=== PATIENT | female | born 1935 | race Caucasian/White ===

== ENCOUNTER 2020-02-18 19:20 | Emergency (ER) | payer MEDICARE ==
[~2020-02-18] VITALS: Ht 162 cm; Wt 63.0 kg
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
[2020-02-18 19:37] LABS: BASOPHILS % (AUTO) 0 % (0-10); EOSINOPHILS # (AUTO) 0.1 10^3/uL (0.0-0.3); EOSINOPHILS % (AUTO) 1 % (0-10); HEMATOCRIT 45 % (35-52); HEMOGLOBIN 15.5 G/DL (11.5-16.0); LYMPHOCYTES # (AUTO) 1.3 X 10^3 (1.0-4.0); LYMPHOCYTES % (AUTO) 18 % (12-44); MEAN CORPUSCULAR HEMOGLOBIN 29 PG (25-34); MEAN CORPUSCULAR HGB CONC 35 G/DL (32-36); MEAN CORPUSCULAR VOLUME 84 FL (80-99); MEAN PLATELET VOLUME 10.5 FL (7.4-10.4); MONOCYTES # (AUTO) 0.7 X 10^3 (0.0-1.0); MONOCYTES % (AUTO) 10 % (0-12); NEUTROPHILS # (AUTO) 4.9 X 10^3 (1.8-7.8); NEUTROPHILS % (AUTO) 70 % (42-75); PLATELET COUNT 167 10^3/uL (130-400)
[2020-02-18 19:51] LABS: ALBUMIN 4.1 GM/DL (3.2-4.5)
[2020-02-18 19:52] LABS: CHLORIDE 107 MMOL/L (98-107); POTASSIUM 3.5 MMOL/L (3.6-5.0); SODIUM 142 MMOL/L (135-145)
[2020-02-18 19:53] LABS: CALCIUM 9.7 MG/DL (8.5-10.1)
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
[2020-02-18 19:54] LABS: GLUCOSE 96 MG/DL (70-105); TOTAL PROTEIN 6.9 GM/DL (6.4-8.2)
[2020-02-18 19:55] LABS: CARBON DIOXIDE 21 MMOL/L (21-32)
[2020-02-18 19:56] LABS: BILIRUBIN,TOTAL 0.7 MG/DL (0.1-1.0)
[2020-02-18 19:57] LABS: ALKALINE PHOSPHATASE 48 U/L (40-136)
[2020-02-18 19:58] LABS: CREATININE SERUM 0.82 MG/DL (0.60-1.30); GFR ESTIMATED > 60
[2020-02-18 19:59] LABS: BUN/CREATININE RATIO 21
[2020-02-18 20:01] LABS: ALANINE AMINOTRANSFERASE 14 U/L (0-55)
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
[2020-02-18 21:51] VITALS: BP 166/85
--- NOTE | 2020-02-18 21:53 | NUR ---
Pt family was contacted by provider; ETA approx [phone]. Pt resting comfortably at this time.
--- OUTSIDE RECORDS SUMMARY | 2020-02-18 22:03 | XMS REPORT | Continuity of Care Document ---
Author Author [facility] Organization [facility] Address [address] [place] [address] Phone Care Team Providers Care Associate Financial Analyst Name Role Phone Sky Yin PCP Champ Pacheco Rndphys Unavailable Allergies, Adverse Reactions, Alerts Allergen Type Severity Reaction Last Updated Verified Status lovastatin Allergy Unkno wn June 25, 2019 Yes Active Medications Medication Status Dose Units Route Sig Qty Days Start Date End Date Instructions Bisoprolol/Hctz 5/6.25 Discontinued 1 TAB Oral 2 DAILY 0 October 24, 2010 9 :57am November 06, 2010 7:25pm Fenofibrate Active 145 MG Oral Daily 0 October 24, 2010 9:57am Fosinopril Sodium Discontinued 20 MG Oral Daily 0 October 24, 2010 9:57am November 06, 2010 7:25pm Irbesartan Discontinued 300 MG Oral Daily 0 October 24, 2010 9:57am November 16, 2012 6:46am Levothyroxine Sodium Discontinued 200 MCG Oral Daily 0 October 24, 2010 9:57am December 08, 2015 1:47pm Hydrochlorothiazide Discontinued 1 TAB Oral Daily 0 November 06, 2010 7:25pm November 26, 2010 1:08am Chlorthalidone Active 25 MG Oral Daily 0 November 16, 2012 6:46am Clopidogrel Bisulfate Active 75 MG Oral Daily 0 June 06, 2014 1:25am Pyridoxine Hcl (Vitamin B6) Active 50 MG Oral Daily 0 June 07, 2014 6:59pm Carvedilol Active 12.5 MG Oral Twice Daily with Meals 0 December 08, 2015 4:1 7pm Alendronate Active 70 MG Oral Q7D June 25, 2019 4:30pm Aspirin Active 81 MG Oral Daily June 25, 2019 4:30pm Calcium Carbonate/Vitamin D3 Active 2 TAB Oral Daily June 25, 2019 4:30pm Colesevelam Active 1875 MG Oral Twice a Day June 25, 2019 4:30pm Cyanocobalamin (Vitamin B-12) Active 1000 MCG Oral Daily June 25, 2019 4: 30pm Ezetimibe Active 10 MG Oral Daily June 25, 2019 4:30pm Fish Oil/Dha/Epa Active 1 CAP Oral Daily June 25, 2019 4:30pm Folic Acid Active 1 MG Oral Daily June 25, 2019 4:30pm Levothyroxine Sodium Active 175 MCG Oral Daily June 25, 2019 4:30pm Metformin Active 500 MG Oral Twice Daily with Meals June 25, 2019 4:30pm Mometasone Furoate Active 1 APPLICATIO Topical Prn June 25, 2019 4:30pm Rosuvastatin Active 20 MG Oral Bedtime June 25, 2019 4:30pm Valsartan Active 160 MG Oral Daily June 25, 2019 4:30pm Problems Active Problems Medical Problem Onset Date Status Pancreatitis Active Inactive/Resolved Problems Medical Problem Onset Date Status Hematoma Resolved Procedures Procedure Date Performed Status CT abdomen pelvis w con August 23 active Relevant Diagnostic Tests and/or Laboratory Data Laboratory Results Test Date/Time Result Interpretation Reference Range Result Comment Performing Site White Blood Count August 23 10:02pm 8.0 T/MM3 4.5-11.0 Main Lab, [address] [place] [id number] Red Blood Count August 23, 2019 10:02p m 4.66 M/MM3 4.00-5.20 Main Lab, [address] [place] [id number] [id number] Hemoglobin August 23, 2019 10:02pm 14.5 GM/DL 12-16 Main Lab, [address] [place] [id number] Hematocrit August 23, 2019 10:02pm 41.7 % 36-46 Main Lab, [address] [place] [address] [id number] Mean Corpuscular Volume July 10:02pm 89.5 UM3 80-100 Main Lab, [address] [place] [address] 07437 Mean Corpuscular Hemoglobin August 23, 2019 10:02pm 31.1 UUG 26-34 Main Lab, [address] [place] [address] Mean Corpuscular Hemoglobin Concent August 23, 2019 10:02pm 34.8 GM/DL 31-37 Main Lab, [address] [place] [address] RDW Standard Deviation July 10:02pm 43.4 FL 36.9-50.2 Main Lab, [address] [place] [address] Platelet Count August 23, 2019 10:02pm 222 T/MM3 130-400 Main Lab, [address] [place] [address] Mean Platelet Volume August 23, 2019 10:02pm 10.3 UM3 9.4-12.4 Main Lab, [address] [place] [address] Neutrophils (%) (Auto) July 10:02pm 79.2 % 33-66 Main Lab, [address] [place] [address] Lymphocytes (%) (Auto) July 10:02pm 12.4 % 23-45 Main Lab, [address] [place] [address] Monocytes (%) (Auto) August 23, 2019 10:02pm 7.0 % 0-9.0 Main Lab, [address] [place] [address] Eosinophils (%) (Auto) July 10:02pm 0.8 % 0-4 Main Lab, [address] [place] [address] Basophils (%) (Auto) August 23, 2019 10:02pm 0.3 % 0-2 Main Lab, [address] [place] [address] Immature Granulocyte % (Auto) Novemb 2018 10:02pm 0.3 % 0.0-0.5 Main Lab, [address] [place] [address] Neutrophils # (Auto) August 23, 2019 10:02pm 6.3 T/MM3 1.8-7.7 Main Lab, [address] [place] [address] Lymphocytes # (Auto) August 23, 2019 10:02pm 1.0 T/MM3 1-4.8 Main Lab, [address] [place] [address] Monocytes # (Auto) August 23 10:02pm 0.6 T/MM3 0-0.8 Main Lab, [address] [place] [address] Eosinophils # (Auto) August 23, 2019 10:02pm 0.1 T/MM3 0-0.5 Main Lab, [address] [place] [address] Basophils # (Auto) August 23 10:02pm 0.0 T/MM3 0-0.2 Main Lab, [address] [place] [address] Absolute Immature Granulocyte (auto August 23, 2019 10:02pm 0.02 T/MM3 0.00- 0.03 Main Lab, [address] [place] [address] Hematology Comments August 23 10:02pm Performed at [facility] Test performed at: [facility], [address] [place] [address]. Supervisor Instrument Maintenance Annette Lynch MD. CLIA# [id number]. Main Lab, [address] [place] [address] Urine Collection Type August 23, 2019 10:00pm Urine, void-cc/notcc Main Lab, [address] [place] [address] Urine Color August 23, 2019 10:00pm Yellow YELLOW Main Lab, [address] [place] [address] Urine Clarity August 23, 2019 10:00pm Clear Main Lab, [address] [place] [address] Urine Specific [place] July 10:00pm >=1.030 Main Lab, [address] [place] [address] Urine pH August 23, 2019 10:00pm 5.0 Main Lab, [address] [place] [address] Urine Leukocyte Esterase August 232018 10:00pm Negative NEGATIVE Main Lab, [address] [place] [address] Urine Nitrate August 23, 2019 10:00pm Negative NEGATIVE Main Lab, [address] [place] [address] Urine Protein August 23, 2019 10:00pm Trace NEGATIVE Main Lab, [address] [place] [address] Urine Glucose (UA) August 23 10:00pm Negative NEGATIVE Main Lab, [address] [place] [address] Urine Ketones August 23, 2019 10:00pm Negative NEGATIVE Main Lab, [address] [place] [address] Urine Urobilinogen August 23 10:00pm 0.2 EU/DL NORMAL Main Lab, [address] [place] [address] Urine Bilirubin August 23, 2019 10:00p m Inconcl due to color NEGATIVE --- 08/23/192224 ---Ur Bili previously reported as: 2+ A Main Lab, [address] [place] [address] Urine Occult Blood August 23 10:00pm Trace-intact NEGATIVE Main Lab, [address] [place] [address] Urinalysis Comment August 23 10:00pm Microscopic not ind. Main Lab, [address] [place] [address] Urinalysis Chemical Comment August 23, 2019 10:00pm Performed at [facility] Test performed at: [facility], [address] [place] [address]. Supervisor Instrument Maintenance Annette Lynch MD. CLIA# [id number]. Main Lab, [address] [place] [address] Icterus Index August 23, 2019 10:02pm < 2.0 0-7 Main Lab, [address] [place] [address] Chemistry Specimen Hemolysis Novembe r 2018 10:02pm < 15.0 0-25 0-25: Specimen Exhibited No Hemolysis. Main Lab, [address] [place] [address] Turbidity August 23, 2019 10:02pm < 20.0 0-20 Main Lab, [address] [place] [address] Sodium Level August 23, 2019 10:02pm 130 meq/L 136-146 Main Lab, [address] [place] [address] Potassium Level August 23, 2019 10:02p m 3.9 meq/L 3.6-5 Main Lab, [address] [place] [address] Chloride Level August 23, 2019 10:02pm 94 meq/L 98-107 Main Lab, [address] [place] [address] Carbon Dioxide Level August 23, 2019 10:02pm 25 MEQ/L 22-30 Main Lab, [address] [place] [address] Anion Gap August 23, 2019 10:02pm 11 meq/L 5-15 Main Lab, [address] [place] [address] Blood Urea Nitrogen August 23 019 10:02pm 30.0 MG/DL 7-17 Main Lab, [address] [place] [address] Creatinine August 23, 2019 10:02pm 1.2 mg/dL 0.7-1.2 Main Lab, [address] [place] [address] Glomerular Filtration Rate Calc Nove mber 2018 10:02pm 43 mL/min >60 Main Lab, [address] [place] [address] Estimated Creatinine Clearance Novem naif 2018 10:02pm 33 mL/min Main Lab, [address] [place], [place] [id number] BUN/Creatinine Ratio August 23, 2019 10:02pm 25 RATIO 6-26 Main Lab, [address] [place] [address] Glucose Level August 23, 2019 10:02pm 162 MG/DL 65-110 Main Lab, [address] [place] [address] Calculated Osmolality August 23, 2019 10:02pm 261 MOSM/KG 261-280 Main Lab, [address] [place] [address] Calcium Level August 23, 2019 10:02pm 10.5 MG/DL 8.4-10.2 Main Lab, [address] [place] [address] Total Bilirubin August 23, 2019 10:02p m 0.90 MG/DL 0.20-1.30 Main Lab, [address] [place] [address] Alkaline Phosphatase August 23, 2019 10:02pm 48 U/L 38-126 Main Lab, [address] [place] [address] Aspartate Amino Transf (AST/SGOT) No [id number] 10:02pm 33 U/L 14-36 Main Lab, [address] [place] [address] Alanine Aminotransferase (ALT/SGPT) August 23, 2019 10:02pm 24 U/L 1-35 Main Lab, [address] [place] [address] Total Protein August 23, 2019 10:02pm 7.9 g/dL 6.3-8.2 Main Lab, [address] [place] [address] Albumin August 23, 2019 10:02pm 4.5 g/dL 3.5-5.0 Main Lab, [address] [place] [address] Globulin August 23, 2019 10:02pm 3.4 G/DL 2.4-3.6 Main Lab, [address] [place] [address] Albumin/Globulin Ratio July 10:02pm 1.3 RATIO 1.1-2.2 Main Lab, [address] [place] [address] Lipase August 23, 2019 10:02pm 44295 U/L 23-300 Test performed at: [facility], [address] [place] [address]. Supervisor Instrument Maintenance Annette Lynch MD. CLIA# [id number]. Main Lab, [address] [place] [address] Chemistry Comments August 23 10:02pm Performed at [facility] Test performed at: [facility], [address] [place] [address]. Supervisor Instrument Maintenance Annette Lynch MD. CLIA# [id number]. Main Lab, [address] [facility] [address] Health Concerns Health Concerns may be documented in an alternate section. Chief Complaint and Reason for Visit Chief Complaint abdm pain Encounters Encounter Location(s) Ar rival/Admit Date Discharge/Depart Date Provider(s) Departed Emergency [facility] nter-Emergency Department August 23, 2019 8:48pm 2019 1:08am null Assessments No Assessments Information Available Functional Status No Functional Status information available Goals Goals may be documented in an alternate section. Immunizations No Immunization Information Available Mental Status No Mental Status Information Available Medical Equipment No Medical Equipment Information available Insurance Providers Guarantor Kaitlyn Siegel Address [address] [facility] [address] Contact Info. Home Phone: Payer Policy Id Coverage Id Subscriber's Name Subscriber Id Effective Date Expiration Date [facility] MCR Supplement [id number] Medicare [id number] July [id number] Self Pay Self N/A [facility] Aarp DO NOT USE [id number] Plan of Treatment Future Tests Future scheduled test information is unavailable Pending Tests Pending diagnostic test information is unavailable Future Visits Future appointment information is unavailable Referrals to Other Providers Reason for Referral Referral Start Date Provider Provider Conta ct Information Provider Address Mitch Yin Work Phone: [address] [place] [address] Dr [address] [facility] [address] Future Procedures Future procedure information is unavailable Future Medications Future medication information is unavailable Patient Instructions Patient instructions are unavailable Social History Smoking Status Status Date of Observation Unknown if ever smoked July 8:50pm Assigned Sex Female Vital Signs Vital Reading Result Ref erence Range Collection Date/Time Height 62 [in_i] August 23, 2019 8:50pm Weight 75.74 kg August 23, 2019 8:50pm Body Temperature 97.6 [degF] 96.8-100.4 August 23, 2019 8:50pm Heart Rate 76 /min 60-100 2019 12:45am Respiratory rate 18 /min 10-24 August 23, 2019 8:50pm Oxygen saturation by Pulse oximetry 95 % 90- 100 2019 12:45am BP Systolic 144 mm[Hg] - 139 2019 12:42am BP Diastolic 76 mm[Hg] - 89 2019 12:42am
--- OUTSIDE RECORDS SUMMARY | 2020-02-18 22:03 | XMS REPORT | Continuity of Care Document ---
Author Author [facility] Organization [facility] Address [address] [place] [address] Phone Care Team Providers Care Rubberizing Mechanic Name Role Phone Sky Yin PCP Champ Pacheco Rndphys Samreen Hawkins Rndphys Allergies, Adverse Reactions, Alerts Allergen Type Severity [...] Oral Daily June 25, 2019 4:30pm Problems Inactive/Resolved Problems Medical Problem Onset Date Status Hematoma Resolved Pancreatitis Resolved Procedures Procedure Date Performed Status CT abdomen pelvis w con August 23 completed Relevant Diagnostic Tests and/or Laboratory Data Laboratory Results Test Date/Time Result Interpretation Reference Range Result Comment Performing Site White Blood Count August 23 10:02pm 8.0 T/MM3 4.5-11.0 Main Lab, [address] [place] [id number] Red Blood Count August 23, 2019 10:02p m 4.66 M/MM3 4.00-5.20 Main Lab, [address] [place] [address] Hemoglobin August 23, 2019 10:02pm 14.5 GM/DL 12-16 Main Lab, [address] [place] [address] Hematocrit August 23, 2019 10:02pm 41.7 % 36-46 Main Lab, [address] [place] [address] Mean Corpuscular Volume July 10:02pm 89.5 UM3 80-[address] [address] Mean Corpuscular Hemoglobin August 23, 2019 10:02pm 31.1 UUG 26-34 Main Lab, [address] [place], [place] [id number] Mean Corpuscular Hemoglobin Concent August 23, 2019 10:02pm 34.8 GM/DL 31-37 Main Lab, [address] [place] [address] RDW Standard Deviation July 10:02pm 43.4 FL 36.9-50.2 Main Lab, [address] [place] [address] Platelet Count August 23, 2019 10:02pm 222 T/MM3 130-400 Main Lab, [address] [place] [address] Mean Platelet Volume August 23, 2019 10:02pm 10.3 UM3 9.4-12.4 Main Lab, [address] [place] [address] Neutrophils (%) (Auto) July 10:02pm 79.2 % 33-66 Main Lab, [address] [place] [address] Lymphocytes (%) (Auto) July 10:02pm 12.4 % 23-45 Main Lab, [address] [place] [address] Monocytes (%) (Auto) August 23, 2019 10:02pm 7.0 % 0-9.0 Main Lab, [address] [place] [address] Eosinophils (%) (Auto) July 10:02pm 0.8 % 0-4 Main Lab, [address] [place] [address] Basophils (%) (Auto) August 23, 2019 10:02pm 0.3 % 0-2 Main Lab, [address] [place] [address] Immature Granulocyte % (Auto) Novemb 2018 10:02pm 0.3 % 0.0-0.5 Main Lab, [address] [place] [address] Neutrophils # (Auto) August 23, 2019 10:02pm 6.3 T/MM3 1.8-7.7 Main Lab, [address] [place] [address] Lymphocytes # (Auto) August 23, 2019 10:02pm 1.0 T/MM3 1-4.8 Main Lab, [address] [place], [place] [id number] Monocytes # (Auto) August 23 10:02pm 0.6 T/MM3 0-0.8 Main Lab, [address] [place] [address] Eosinophils # (Auto) August 23, 2019 10:02pm 0.1 T/MM3 0-0.5 Main Lab, [address] [place] [address] Basophils # (Auto) August 23 10:02pm 0.0 T/MM3 0-0.2 Main Lab, [address] [place] [address] Absolute Immature Granulocyte (auto August 23, 2019 10:02pm 0.02 T/MM3 0.00- 0.03 Main Lab, [address] [place] [address] Hematology Comments August 23 019 10:02pm Performed at [facility] Test performed at: [facility], [address] [place] [address]. Rn Manager Annette Lynch MD. CLIA# [id number]. Main Lab, [address] [place] [address] Urine Collection Type August 23, 2019 10:00pm Urine, void-cc/notcc Main Lab, [address] [place] [address] Urine Color August 23, 2019 10:00pm Yellow YELLOW Main Lab, [address] [place] [address] Urine Clarity August 23, 2019 10:00pm Clear Main Lab, [address] [place] [address] Urine Specific [place] July 10:00pm >=1.030 Main Lab, [address] [place] [address] Urine pH August 23, 2019 10:00pm 5.0 Main Lab, [address] [place] [address] Urine Leukocyte Esterase August 232018 10:00pm Negative NEGATIVE Main Lab, [address] [place] [address] Urine Nitrate August 23, 2019 10:00pm Negative NEGATIVE Main Lab, [address] [place] [address] Urine Protein August 23, 2019 10:00pm Trace NEGATIVE Main Lab, [address] [place] [address] Urine Glucose (UA) August 23 10:00pm Negative NEGATIVE Main Lab, [address] [place] [address] Urine Ketones August 23, 2019 10:00pm Negative NEGATIVE Main Lab, [address] [place] [address] Urine Urobilinogen August 23 10:00pm 0.2 EU/DL NORMAL Main Lab, [address] [place] [address] Urine Bilirubin August 23, 2019 10:00p m Inconcl due to color NEGATIVE --- 08/23/192224 ---Ur Bili previously reported as: 2+ A Main Lab, [address] [place] [address] Urine Occult Blood August 23 10:00pm Trace-intact NEGATIVE Main Lab, [address] [place] [address] Urinalysis Comment August 23 10:00pm Microscopic not ind. Main Lab, [address] [place] [address] Urinalysis Chemical Comment August 23, 2019 10:00pm Performed at [facility] Test performed at: [facility], [address] [place] [address]. Rn Manager Annette Lynch MD. [facility]# [id number]. Main Lab, [address] [place] [address] Icterus Index August 23, 2019 10:02pm < 2.0 0-7 Main Lab, [address] [place] [address] Chemistry Specimen Hemolysis Novembe r 2018 10:02pm < 15.0 0-25 0-25: Specimen Exhibited No Hemolysis. Main Lab, [address] [place] [address] Turbidity August 23, 2019 10:02pm < 20.0 0-20 Main Lab, [address] [place] [address] Sodium Level August 23, 2019 10:02pm 130 meq/L 136-146 Main Lab, [address] [place] [address] Potassium Level August 23, 2019 10:02p m 3.9 meq/L 3.6-5 Main Lab, [address] [place] [address] Chloride Level August 23, 2019 10:02pm 94 meq/L 98-107 Main Lab, [address] [place] [address] Carbon Dioxide Level August 23, 2019 10:02pm 25 MEQ/L 22-30 Main Lab, [address] [place] [address] Anion Gap August 23, 2019 10:02pm 11 meq/L 5-15 Main Lab, [address] [place] [address] Blood Urea Nitrogen August 23 019 10:02pm 30.0 MG/DL 7-17 Main Lab, [address] [place] [address] Creatinine August 23, 2019 10:02pm 1.2 mg/dL 0.7-1.2 Main Lab, [address] [place] [address] Glomerular Filtration Rate Calc Nove mber 2018 10:02pm 43 mL/min >60 Main Lab, [address] [place] [address] Estimated Creatinine Clearance Novem naif 2018 10:02pm 33 mL/min Main Lab, [address] [place] [address] BUN/Creatinine Ratio August 23, 2019 10:02pm 25 RATIO 6-26 Main Lab, [address] [place] [address] Glucose Level August 23, 2019 10:02pm 162 MG/DL 65-110 Main Lab, [address] [place] [address] Calculated Osmolality August 23, 2019 10:02pm 261 MOSM/KG 261-280 Main Lab, [address] [place] [address] Calcium Level August 23, 2019 10:02pm 10.5 MG/DL 8.4-10.2 Main Lab, [address] [place] [address] Total Bilirubin August 23, 2019 10:02p m 0.90 MG/DL 0.20-1.30 Main Lab, [address] [place] [address] Alkaline Phosphatase August 23, 2019 10:02pm 48 U/L 38-126 Main Lab, [address] [place] [address] Aspartate Amino Transf (AST/SGOT) No [id number] 10:02pm 33 U/L 14-36 Main Lab, [address] [place] [address] Alanine Aminotransferase (ALT/SGPT) August 23, 2019 10:02pm 24 U/L 1-35 Main Lab, [address] [place] [address] Total Protein August 23, 2019 10:02pm 7.9 g/dL 6.3-8.2 Main Lab, [address] [place] [address] Albumin August 23, 2019 10:02pm 4.5 g/dL 3.5-5.0 Main Lab, [address] [place] [address] Globulin August 23, 2019 10:02pm 3.4 G/DL 2.4-3.6 Main Lab, [address] [place] [address] Albumin/Globulin Ratio July 10:02pm 1.3 RATIO 1.1-2.2 Main Lab, [address] [place] [address] Lipase August 23, 2019 10:02pm 24952 U/L 23-300 Test performed at: [facility], [address] [place] [address]. Rn Manager Annette Lynch MD. CLIA# [id number]. Main Lab, [address] [place] [address] Chemistry Comments August 23 10:02pm Performed at [facility] Test performed at: [facility], [address] [place] [address]. Rn Manager Annette Lynch MD. [place]# [id number]. Main Lab, [address] [address] Health Concerns Health Concerns may be documented in an alternate section. Chief Complaint and Reason for Visit Chief Complaint abdm pain Encounters Encounter Location(s) Ar rival/Admit Date Discharge/Depart Date Provider(s) Departed Emergency [facility] nter-Emergency Department August 23, 2019 8:48pm 2019 1:08am null Assessments No Assessments Information Available Functional Status No Functional Status information available Goals Goals may be documented in an alternate section. Immunizations No Immunization Information Available Mental Status No Mental Status Information Available Medical Equipment No Medical Equipment Information available Insurance Providers Guarantor Kaitlyn Cunninghamers Address [address] [place] [address] Contact Info. Home Phone: Payer Policy Id Coverage Id Subscriber's Name Subscriber Id Effective Date Expiration Date [facility] MCR Supplement [id number] Medicare [id number] July [id number] Self Pay Self N/A [facility] DO NOT USE [id number] Plan of Treatment Future Tests Future scheduled test information is unavailable Pending Tests Pending diagnostic test information is unavailable Future Visits Future appointment information is unavailable Referrals to Other Providers Reason for Referral Referral Start Date Provider Provider Conta ct Information Provider Address Mitch Yin Work Phone: [address] [place] [address] [address] [place] [address] Future Procedures Future procedure information is unavailable [...] 60-100 2019 12:45am Respiratory rate 18 /min 10-August 23, 2019 8:50pm Oxygen saturation by Pulse oximetry 95 % 90- 100 2019 12:45am BP Systolic 144 mm[Hg] - 139 2019 12:42am BP Diastolic 76 mm[Hg] - 89 2019 12:42am
--- OUTSIDE RECORDS SUMMARY | 2020-02-18 22:04 | XMS REPORT | Continuity of Care Document ---
Author Author [facility] Organization [facility] Address [address] [place] [address] Phone Care Team Providers Care Office Rental Clerk Name Role Phone Sky Yin PCP Gumaro Horton Rndphys Allergies, Adverse Reactions, Alerts Allergen Type Severity Reaction Last Updated Verified Status lovastatin Allergy Unknown Yes Active Medications Medication Status Dose Units Route Sig Qty Days Start Date End Date Instructions Fenofibrate Active 145 MG Oral Daily 0 October 24, 2010 9:57am Chlorthalidone Active 25 MG Oral Daily 0 November 16, 013 6:46am Clopidogrel Bisulfate Active 75 MG Oral Daily 0 June 06, 2014 1:25am Pyridoxine Hcl (Vitamin B6) Active 50 MG Oral Daily 0 June 07, 2014 6:59pm Carvedilol Active 12.5 MG Oral Twice Daily with Meals 0 December 08, 2015 4:17pm Alendronate Active 70 MG Oral Q7D June 25, 2019 4 :30pm Aspirin Active 81 MG Oral Daily June 25, 2019 4:30p m Calcium Carbonate/Vitamin D3 Active 2 TAB Oral Daily June 25, 2019 4:30pm Colesevelam Active 1875 MG Oral Twice a Day June 25, 2019 4:30pm Cyanocobalamin (Vitamin B-12) Active 1000 MCG Oral Daily June 25, 2019 4:30pm Ezetimibe Active 10 MG Oral Daily June 25, 2019 4:3 0pm Fish Oil/Dha/Epa Active 1 CAP Oral Daily June 25 019 4:30pm Folic Acid Active 1 MG Oral Daily June 25, 2019 4: 30pm Levothyroxine Sodium Active 175 MCG Oral Daily June 4:30pm Metformin Active 500 MG Oral Twice Daily with Meals June 25, 2019 4:30pm Mometasone Furoate Active 1 APPLICATIO Topical Prn June 25, 2019 4:30pm Rosuvastatin Active 20 MG Oral Bedtime June 25 4:30pm Valsartan Active 160 MG Oral Daily June 25, 2019 4:3 0pm Problems Active Problems Medical Problem Onset Date Status Hematoma Active Procedures Procedure Date Performed Status XR hand RT min 3V June 25, 2019 completed Relevant Diagnostic Tests and/or Laboratory Data No known relevant diagnostic tests and/or laboratory data. Health Concerns No known health concerns documented Chief Complaint and Reason for Visit Chief Complaint r hand inj Encounters Encounter Location(s) Arrival/Admit Date Discharge/Depart Date Provider(s) Departed Emergency [facility]-Emergency Departme nt June 25, 2019 4:05pm June 25, 2019 5:35pm null Assessments No Assessments Information Available Functional Status No Functional Status information available Goals Acute Goals Hematoma (ED) Immunizations No Immunization Information Available Mental Status No Mental Status Information Available Medical Equipment No Medical Equipment Information available Insurance Providers Guarantor Kaitlyn Siegel Address [address] [facility] [address] Contact Info. Home Phone: Payer Policy Id Coverage Id Subscriber's Name Subscriber Id Effect dayanara Date Expiration Date [facility] Supplement [id number] Medicare [id number] 2013 Self Pay Self N/A [facility] DO NOT USE [id number] Plan of Treatment Future Tests Future scheduled test information is unavailable Pending Tests Pending diagnostic test information is unavailable Future Visits Future appointment information is unavailable Referrals to Other Providers Reason for Referral Referral Start Date Provider Provider Blaisea ct Information Provider Address A Annamaria Chaviray Work Phone: [address] [place] [address] [address] [facility] [address] Future Procedures Future procedure information is unavailable Future Medications Future medication information is unavailable Patient Instructions Patient instructions are unavailable Social History Assigned Sex Female Vital Signs Vital Reading Result Reference Range Collection Date/ Time Height 62 [in_i] June 25 4:08pm Weight 78.70 kg June 25 4:08pm Body Temperature 97.2 [degF] 96.8-100.4 June 25 4:08pm Heart Rate 79 /min 60-100 June 25 4:08pm Respiratory rate 20 /min 10-24 June 25 4:08pm Oxygen saturation by Pulse oximetry 97 % 90-100 June 25, 2019 4:08pm BP Systolic 148 mm[Hg] -139 June 25 9 4:08pm BP Diastolic 67 mm[Hg] -89 June 25 9 4:08pm Hospital Discharge Instructions Additional Instructions Ice intermittently for no longer than 30 minutes at a time. Please take ibuprofen for pain. Elevate your hand as much as possible. However be aware that she may have furth er swelling and bruising into your fingers as the wound heals. Please follow-up with your physician next week for recheck. Return to ER if condition changes or worsens
--- OUTSIDE RECORDS SUMMARY | 2020-02-18 22:04 | XMS REPORT | Continuity of Care Document ---
Author Author [facility] Organization [facility] Address [address] [place] [address] Phone Care Team Providers Care Fisher Swordfish Name Role Phone Sky Yin PCP Gumaro [...] Arrival/Admit Date Discharge/Depart Date Provider(s) Departed Emergency [facility]-Emergency Departme nt June 25, 2019 4:05pm June 25, 2019 5:35pm null Assessments No Assessments Information Available Functional Status No Functional Status information available Goals Acute Goals Hematoma (ED) Immunizations No Immunization Information Available Mental Status No Mental Status Information Available Medical Equipment No Medical Equipment Information available Insurance Providers Guarantor Kaitlyn Siegel Address [address] [facility] [address] Contact Info. Home Phone: Payer Policy Id Coverage Id Subscriber's Name Subscriber Id Effect dayanara Date Expiration Date [facility] Supplement [id number] Medicare [id number] 2013 Self Pay Self N/A [facility] DO NOT USE [id number] Plan of Treatment Future Tests Future scheduled test information is unavailable Pending Tests Pending diagnostic test information is unavailable Future Visits Future appointment information is unavailable Referrals to Other Providers Reason for Referral Referral Start Date Provider Provider Blaisea ct Information Provider Address A Annamaria Chaviray Work Phone: [address] [place] [address] Dr [address] [facility] [address] Future Procedures Future procedure information is unavailable [...]
--- OUTSIDE RECORDS SUMMARY | 2020-02-18 22:04 | XMS REPORT | Continuity of Care Document ---
Author Author [facility] Organization [facility] Address [address] [place] [place] [address] Phone Care Team Providers Care Chorus Dancer Name Role Phone Sky Yin PCP Champ [...] 23 10:02pm 8.0 T/MM3 4.5-11.0 Main Lab, [address] [place] [id number] Red Blood Count August 23, 2019 10:02p m 4.66 M/MM3 4.00-5.20 Main Lab, [address] [place] [address] [id number] Hemoglobin August 23, 2019 10:02pm 14.5 GM/DL 12-16 Main Lab, [address] [place] [address] [id number] Hematocrit August 23, 2019 10:02pm 41.7 % 36-46 Main Lab, [address] [place] [address] 19258 Mean Corpuscular Volume July 10:02pm 89.5 UM3 80-[address] [address] Mean Corpuscular Hemoglobin August 23, 2019 10:02pm 31.1 UUG 26-34 Main Lab, [address] [place], [place] [id number] Mean Corpuscular Hemoglobin Concent August 23, 2019 10:02pm 34.8 GM/DL 31-37 Main Lab, [address] [place] [address] RDW Standard Deviation July 10:02pm 43.4 FL 36.9-50.2 Main Lab, [address] [place] [address] Platelet Count August 23, 2019 10:02pm 222 T/MM3 130-400 Main Lab, [address] [place] [address] Mean Platelet Volume August 23, 2019 10:02pm 10.3 UM3 9.4-12.4 Main Lab, [address] [place] [address] Neutrophils (%) (Auto) July 10:02pm 79.2 % 33-66 Main Lab, [address] [place] [address] Lymphocytes (%) (Auto) July 10:02pm 12.4 % 23-45 Main Lab, [address] [place] [address] Monocytes (%) (Auto) August 23, 2019 10:02pm 7.0 % 0-9.0 Main Lab, [address] [place] [address] Eosinophils (%) (Auto) July 10:02pm 0.8 % 0-4 Main Lab, [address] [place] [address] Basophils (%) (Auto) August 23, 2019 10:02pm 0.3 % 0-2 Main Lab, [address] [place] [address] Immature Granulocyte % (Auto) Novemb 2018 10:02pm 0.3 % 0.0-0.5 Main Lab, [address] [place] [address] Neutrophils # (Auto) August 23, 2019 10:02pm 6.3 T/MM3 1.8-7.7 Main Lab, [address] [place] [address] Lymphocytes # (Auto) August 23, 2019 10:02pm 1.0 T/MM3 1-4.8 Main Lab, [address] [place], [place] [id number] Monocytes # (Auto) August 23 10:02pm 0.6 T/MM3 0-0.8 Main Lab, [address] [place] [address] Eosinophils # (Auto) August 23, 2019 10:02pm 0.1 T/MM3 0-0.5 Main Lab, [address] [place] [address] Basophils # (Auto) August 23 10:02pm 0.0 T/MM3 0-0.2 Main Lab, [address] [place] [address] Absolute Immature Granulocyte (auto August 23, 2019 10:02pm 0.02 T/MM3 0.00- 0.03 Main Lab, [address] [place] [address] Hematology Comments August 23 019 10:02pm Performed at [facility] Test performed at: [facility], [address] [place] [address]. Undercar Specialist Annette Lynch MD. CLIA# [id number]. Main Lab, [address] [place] [address] Urine Collection Type August 23, 2019 10:00pm Urine, void-cc/notcc Main Lab, [address] [place] [address] Urine Color August 23, 2019 10:00pm Yellow YELLOW Main Lab, [address] [place] [address] Urine Clarity August 23, 2019 10:00pm Clear Main Lab, [address] [place] [address] Urine Specific [place] July 10:00pm >=1.030 Main Lab, [address] [place] [address] Urine pH August 23, 2019 10:00pm 5.0 Main Lab, [address] [place] [address] Urine Leukocyte Esterase August 232018 10:00pm Negative NEGATIVE Main Lab, [address] [place] [address] Urine Nitrate August 23, 2019 10:00pm Negative NEGATIVE Main Lab, [address] [place] [address] Urine Protein August 23, 2019 10:00pm Trace NEGATIVE Main Lab, [address] [place] [address] Urine Glucose (UA) August 23 10:00pm Negative NEGATIVE Main Lab, [address] [place] [address] Urine Ketones August 23, 2019 10:00pm Negative NEGATIVE Main Lab, [address] [place] [address] Urine Urobilinogen August 23 10:00pm 0.2 EU/DL NORMAL Main Lab, [address] [place] [address] Urine Bilirubin August 23, 2019 10:00p m Inconcl due to color NEGATIVE --- 08/23/192224 ---Ur Bili previously reported as: 2+ A Main Lab, [address] [place] [address] Urine Occult Blood August 23 10:00pm Trace-intact NEGATIVE Main Lab, [address] [place] [address] Urinalysis Comment August 23 10:00pm Microscopic not ind. Main Lab, [address] [place] [address] Urinalysis Chemical Comment August 23, 2019 10:00pm Performed at [facility] Test performed at: [facility], [address] [place] [address]. Undercar Specialist Annette Lynch MD. [facility]# [id number]. Main Lab, [address] [place] [address] Icterus Index August 23, 2019 10:02pm < 2.0 0-7 Main Lab, [address] [place] [address] Chemistry Specimen Hemolysis Novembe r 2018 10:02pm < 15.0 0-25 0-25: Specimen Exhibited No Hemolysis. Main Lab, [address] [place] [address] Turbidity August 23, 2019 10:02pm < 20.0 0-20 Main Lab, [address] [place] [address] Sodium Level August 23, 2019 10:02pm 130 meq/L 136-146 Main Lab, [address] [place] [address] Potassium Level August 23, 2019 10:02p m 3.9 meq/L 3.6-5 Main Lab, [address] [place] [address] Chloride Level August 23, 2019 10:02pm 94 meq/L 98-107 Main Lab, [address] [place] [address] Carbon Dioxide Level August 23, 2019 10:02pm 25 MEQ/L 22-30 Main Lab, [address] [place] [address] Anion Gap August 23, 2019 10:02pm 11 meq/L 5-15 Main Lab, [address] [place] [address] Blood Urea Nitrogen August 23 019 10:02pm 30.0 MG/DL 7-17 Main Lab, [address] [place] [address] Creatinine August 23, 2019 10:02pm 1.2 mg/dL 0.7-1.2 Main Lab, [address] [place] [address] Glomerular Filtration Rate Calc Nove mber 2018 10:02pm 43 mL/min >60 Main Lab, [address] [place] [address] Estimated Creatinine Clearance Novem naif 2018 10:02pm 33 mL/min Main Lab, [address] [place] [address] BUN/Creatinine Ratio August 23, 2019 10:02pm 25 RATIO 6-26 Main Lab, [address] [place] [address] Glucose Level August 23, 2019 10:02pm 162 MG/DL 65-110 Main Lab, [address] [place] [address] Calculated Osmolality August 23, 2019 10:02pm 261 MOSM/KG 261-280 Main Lab, [address] [place] [address] Calcium Level August 23, 2019 10:02pm 10.5 MG/DL 8.4-10.2 Main Lab, [address] [place] [address] Total Bilirubin August 23, 2019 10:02p m 0.90 MG/DL 0.20-1.30 Main Lab, [address] [place] [address] Alkaline Phosphatase August 23, 2019 10:02pm 48 U/L 38-126 Main Lab, [address] [place] [address] Aspartate Amino Transf (AST/SGOT) No [id number] 10:02pm 33 U/L 14-36 Main Lab, [address] [place] [address] Alanine Aminotransferase (ALT/SGPT) August 23, 2019 10:02pm 24 U/L 1-35 Main Lab, [address] [place] [address] Total Protein August 23, 2019 10:02pm 7.9 g/dL 6.3-8.2 Main Lab, [address] [place] [address] Albumin August 23, 2019 10:02pm 4.5 g/dL 3.5-5.0 Main Lab, [address] [place] [address] Globulin August 23, 2019 10:02pm 3.4 G/DL 2.4-3.6 Main Lab, [address] [place] [address] Albumin/Globulin Ratio July 10:02pm 1.3 RATIO 1.1-2.2 Main Lab, [address] [place] [address] Lipase August 23, 2019 10:02pm 25455 U/L 23-300 Test performed at: [facility], [address] [place] [address]. Undercar Specialist Annette Lynch MD. CLIA# [id number]. Main Lab, [address] [place] [address] Chemistry Comments August 23 10:02pm Performed at [facility] Test performed at: [facility], [address] [place] [address]. Undercar Specialist Annette Lynch MD. [place]# [id number]. Main Lab, [address] [address] Health Concerns Health Concerns may be documented in an alternate section. Chief Complaint and Reason for Visit Chief Complaint abdm pain Encounters Encounter Location(s) [place] rival/Admit Date Discharge/Depart Date Provider(s) Departed Emergency [facility] nter-Emergency Department August 23, 2019 8:48pm 2019 1:08am null Assessments No Assessments Information Available Functional Status No Functional Status information available Goals Goals may be documented in an alternate section. Immunizations No Immunization Information Available Mental Status No Mental Status Information Available Medical Equipment No Medical Equipment Information available Insurance Providers Guarantor Kaitlyn Cunninghamers Address [address] [place] [address] Contact Info. Home Phone: Payer Policy Id Coverage Id Subscriber's Name Subscriber Id Effective Date Expiration Date [facility] MCR Supplement [id number] Medicare [id number] July 262012 Self Pay Self N/A [facility] Aarp DO NOT USE [id number] Plan of Treatment Future Tests Future scheduled test information is unavailable Pending Tests Pending diagnostic test information is unavailable Future Visits Future appointment information is unavailable Referrals to Other Providers Reason for Referral Referral Start Date Provider Provider Conta ct Information Provider Address Mitch Yin Work Phone: [address] [place] [address] Dr [address] [place] [address] Future Procedures Future procedure information is unavailable [...]
--- OUTSIDE RECORDS SUMMARY | 2020-02-18 22:04 | XMS REPORT | Continuity of Care Document ---
[facility] Address [address] [place] [address] Care Team Providers Care Prop And Scenery Maker Name Role Phone Mitch Yin PCP Mitch Yin Attphys Allergies, Adverse Reactions, Alerts Allergen Type Severity Reaction Last Updated Verified Status lovastatin Allergy Unknown December 08, 2015 N Acti ve Medications Active Medications Medication Dose Units Route Sig Qty Days Start Date St atus Aspirin [Aspir 81] 81 MG PO Daily 0 2010 Active Colesevelam Hcl [Welchol] 3 TAB PO Twice a Day 0 October 24, 2010 Active Calcium Carbonate (Calcium) 600 MG PO 2 DAILY 0 October 24, 2010 Active Ergocalciferol (Vitamin D2) [Vitamin D] 800 UNIT PO 2 DAILY 0 October 24, 2010 Active Ezetimibe [Zetia] 10 MG PO Daily 0 2010 Active Fenofibrate [Tricor] 145 MG PO Daily 0 Sep Active Folic Acid 400 MG PO Daily 0 October 24 011 Active Rosuvastatin Calcium [Crestor] 20 MG PO Daily 0 October 24, 2010 Active VITAMIN B12 100MCG. DAILY 0 2010 Active Chlorthalidone [Hygroton] 25 MG PO Daily 0 November 16, 2012 Active Losartan Potassium 100 MG PO Daily 0 2012 Active Alendronate Sodium 70 MG PO Weekly 0 2012 Active Clopidogrel Bisulfate [Clopidogrel] 1 TAB PO Daily 0 June 06, 2014 Active [place]-3 Fatty Acids [Fish Oil] 1000 MG Daily 0 June 06, 2014 Active Lutein 1 CAP PO Daily 0 June 06 Active Metformin Hcl 500 MG PO Twice Daily with Meals 0 June 06, 2014 Active Potassium Gluconate 595 MG Daily 0 May Active Diphenhydramine Hcl 2 TAB PO Every 6 Hours 0 June 06, 2014 Active Pyridoxine Hcl (Vitamin B6) [Vitamin B-6] Daily 0 June 07, 2014 Active Levothyroxine Sodium 1 TAB PO Daily 30 Nov Active Carvedilol [Coreg] 1 TAB PO Twice Daily with Meals 0 December 08, 2015 Active Discontinued Medications Medication Dose Units Route Sig Qty Days Start Date Discontin ued Date Status Bisoprolol/Hctz 5/6.25 [Ziac] 1 TAB PO 2 DAILY 0 October 24, 2010 November 06, 2010 Discontinued Fosinopril Sodium 20 MG PO Daily 0 October 24 011 November 06, 2010 Discontinued Irbesartan [Avapro] 300 MG PO Daily 0 October 24, 2010 November 16, 2012 Discontinued Levothyroxine Sodium [Levoxyl] 200 MCG PO Daily 0 October 24, 2010 December 08, 2015 Discontinued Hydrochlorothiazide 1 TAB PO Daily 0 OctoberNovember 26, 2010 Discontinued Problem List No problem information available. Procedures Procedure Date Status MM screening erma BI w/isaak February 26, 2019 completed Relevant Diagnostic Tests and/or Laboratory Data No known relevant diagnostic tests, laboratory data, and/or discharge summary. Chief Complaint and Reason for Visit Encounter Admit Date Chief Complaint Reason for Visit Departed Clinical February 26, 2019 1:12pm screening mammo Hospital Discharge Instructions No known hospital discharge instructions. Hospital Discharge Medications Medication Dose Units Route Sig Qty Days Order Date Status In structions Aspirin 81 MG PO Daily 0 October 24, 2010 Active Bisoprolol/Hctz 5/6.25 1 TAB PO 2 DAILY 0 October 24, 2010 Discontinued Colesevelam Hcl 3 TAB PO Twice a Day 0 September Active Calcium Carbonate (Calcium) 600 MG PO 2 DAILY 0 [facility] 2010 Active Ergocalciferol (Vitamin D2) 800 UNIT PO 2 DAILY 0 [facility] 2010 Active Ezetimibe 10 MG PO Daily 0 October 24, 2010 Acti ve Fenofibrate 145 MG PO Daily 0 October 24, 2010 Ac tive Folic Acid 400 MG PO Daily 0 October 24, 2010 Act dayanara Fosinopril Sodium 20 MG PO Daily 0 October 24 011 Discontinued Irbesartan 300 MG PO Daily 0 October 24, 2010 Dis continued Levothyroxine Sodium 200 MCG PO Daily 0 September Discontinued Rosuvastatin Calcium 20 MG PO Daily 0 September Active VITAMIN B12 100MCG. DAILY October 24, 2010 Active Hydrochlorothiazide 1 TAB PO Daily 0 October Discontinued Chlorthalidone 25 MG PO Daily 0 November 16, 3 Active Losartan Potassium 100 MG PO Daily 0 November 16, 2012 Active Alendronate Sodium 70 MG PO Weekly 0 November 16, 2012 Active Clopidogrel Bisulfate 1 TAB PO Daily 0 June 06, 2014 Active [place]-3 Fatty Acids 1000 MG Daily 0 May 252013 Active Lutein 1 CAP PO Daily 0 June 06, 2014 Activ e Metformin Hcl 500 MG PO Twice Daily with Meals 0 S ep2013 Active Potassium Gluconate 595 MG Daily 0 May 252013 Active Diphenhydramine Hcl 2 TAB PO Every 6 Hours 0 3 May Active Pyridoxine Hcl (Vitamin B6) Daily 0 May Active Levothyroxine Sodium 1 TAB PO Daily December 08, 2015 Active Carvedilol 1 TAB PO Twice Daily with Meals 0 Ad 2015 Active Encounters Encounter Facility Location Admit/Visit Date Discharge/Departure Date Attending Provider Departed Clinical [facility] February 26 1:12pm February 26, 2019 1:13pm Mitch Yin Functional Status No known functional status. Immunizations No known immunizations. Payers Payer Name Policy Type Covered Constitution Party Covered Constitution Party Id Relationship Sub scriber Subscriber Id AARP [facility] Mcr supplement Commercial [id number] Self/Same As Patient [id number] Medicare Medicare Part A [id number] Self/Same As Patient [id number] Self Pay Personal Payment ([place] - No Insurance) [facility] Aar DO NOT USE Commercial [id number] Self/Same As Diann ent [id number] Plan of Care No Known Plan of Care Information Social History No known social history. Vital Signs No known vital signs results.
--- OUTSIDE RECORDS SUMMARY | 2020-02-18 22:04 | XMS REPORT | Continuity of Care Document ---
Author [facility] Address [address] [place] [address] Care Team Providers Care Casing Crew Name Role Phone Mitch Yin PCP Mitch [...] PO Daily 0 June 06, 2014 Active [place]-3 Fatty Acids [Fish Oil] 1000 MG Daily [...] (Calcium) 600 MG PO 2 DAILY 0 [facility] 2010 Active Ergocalciferol (Vitamin D2) 800 UNIT PO 2 DAILY 0 [facility] 2010 Active Ezetimibe 10 MG PO Daily [...] PO Daily 0 June 06, 2014 Active [place]-3 Fatty Acids 1000 MG Daily 0 May 252013 Active Lutein 1 CAP PO Daily 0 June 06, 2014 Activ e Metformin Hcl 500 MG PO Twice Daily with Meals 0 S ep2013 Active Potassium Gluconate 595 MG Daily 0 May 252013 Active Diphenhydramine Hcl 2 TAB PO Every 6 Hours 0 3 May emb2013 Active Pyridoxine Hcl (Vitamin B6) Daily 0 May Active Levothyroxine Sodium 1 TAB PO Daily December 08, 2015 Active Carvedilol 1 TAB PO Twice Daily with Meals 0 Ad 2015 Active Encounters Encounter Facility Location Admit/Visit Date Discharge/Departure Date Attending Provider Departed Clinical [facility] February 26 1:12pm February 26, 2019 1:13pm Mitch Yin Functional Status No known functional status. Immunizations No known immunizations. Payers Payer Name Policy Type Covered Constitution Party Covered Constitution Party Id Relationship Sub scriber Subscriber Id AARP [facility] Mcr supplement Commercial [id number] Self/Same As Patient [id number] Medicare Medicare Part A [id number] Self/Same As Patient [id number] Self Pay Personal Payment ([place] - No Insurance) [facility] Aar DO NOT USE Commercial [id number] Self/Same As Diann ent [id number] Plan of Care No Known Plan of Care Information Social History No known social history. Vital Signs No known vital signs results.
--- OUTSIDE RECORDS SUMMARY | 2020-02-18 22:04 | XMS REPORT | Continuity of Care Document ---
Author Author [facility] Organization [facility] Address [address] [place] [address] Phone Care Team Providers Care Title Attorney Name Role Phone Sky Yin PCP Champ [...] 23 10:02pm 8.0 T/MM3 4.5-11.0 Main Lab, [address] [place] [id number] Red Blood Count August 23, 2019 10:02p m 4.66 M/MM3 4.00-5.20 Main Lab, [address] [place] [id number] Hemoglobin August 23, 2019 10:02pm 14.5 GM/DL 12-16 Main Lab, [address] [place] [address]79 Hematocrit August 23, 2019 10:02pm 41.7 % 36-46 Main Lab, [address] [place] [address] Mean Corpuscular Volume July 10:02pm 89.5 UM3 80-100 Main Lab, [address] [place] [address] 13954 Mean Corpuscular Hemoglobin August 23, 2019 10:02pm 31.1 UUG 26-34 Main Lab, [address] [place] [address] Mean Corpuscular Hemoglobin Concent August 23, 2019 10:02pm 34.8 GM/DL 31-37 Main Lab, [address] [place] [address] RDW Standard Deviation July 10:02pm 43.4 FL 36.9-50.2 Main Lab, [address] [place] [address] Platelet Count August 23, 2019 10:02pm 222 T/MM3 130-400 Main Lab, [address] [place] [address] Mean Platelet Volume August 23, 2019 10:02pm 10.3 UM3 9.4-12.4 Main Lab, [address] [place] [address] Neutrophils (%) (Auto) July 10:02pm 79.2 % 33-66 Main Lab, [address] [place] [address] Lymphocytes (%) (Auto) July 10:02pm 12.4 % 23-45 Main Lab, [address] [place] [address] Monocytes (%) (Auto) August 23, 2019 10:02pm 7.0 % 0-9.0 Main Lab, [address] [place] [address] Eosinophils (%) (Auto) July 10:02pm 0.8 % 0-4 Main Lab, [address] [place] [address] Basophils (%) (Auto) August 23, 2019 10:02pm 0.3 % 0-2 Main Lab, [address] [place] [address] Immature Granulocyte % (Auto) Novemb 2018 10:02pm 0.3 % 0.0-0.5 Main Lab, [address] [place] [address] Neutrophils # (Auto) August 23, 2019 10:02pm 6.3 T/MM3 1.8-7.7 Main Lab, [address] [place] [address] Lymphocytes # (Auto) August 23, 2019 10:02pm 1.0 T/MM3 1-4.8 Main Lab, [address] [place] [address] Monocytes # (Auto) August 23 10:02pm 0.6 T/MM3 0-0.8 Main Lab, [address] [place] [address] Eosinophils # (Auto) August 23, 2019 10:02pm 0.1 T/MM3 0-0.5 Main Lab, [address] [place] [address] Basophils # (Auto) August 23 10:02pm 0.0 T/MM3 0-0.2 Main Lab, [address] [place] [address] Absolute Immature Granulocyte (auto August 23, 2019 10:02pm 0.02 T/MM3 0.00- 0.03 Main Lab, [address] [place] [address] Hematology Comments August 23 10:02pm Performed at [facility] Test performed at: [facility], [address] [place] [address]. Area Forester Annette Lynch MD. CLIA# [id number]. Main Lab, [address] [place] [address] Urine Collection Type August 23, 2019 10:00pm Urine, void-cc/notcc Main Lab, [address] [place] [address] Urine Color August 23, 2019 10:00pm Yellow YELLOW Main Lab, [address] [place] [address] Urine Clarity August 23, 2019 10:00pm Clear Main Lab, [address] [place] [address] Urine Specific [place] July 10:00pm >=1.030 Main Lab, [address] [place] [address] Urine pH August 23, 2019 10:00pm 5.0 Main Lab, [address] [place] [address] Urine Leukocyte Esterase August 232018 10:00pm Negative NEGATIVE Main Lab, [address] [place] [address] Urine Nitrate August 23, 2019 10:00pm Negative NEGATIVE Main Lab, [address] [place] [address] Urine Protein August 23, 2019 10:00pm Trace NEGATIVE Main Lab, [address] [place] [address] Urine Glucose (UA) August 23 10:00pm Negative NEGATIVE Main Lab, [address] [place] [address] Urine Ketones August 23, 2019 10:00pm Negative NEGATIVE Main Lab, [address] [place] [address] Urine Urobilinogen August 23 10:00pm 0.2 EU/DL NORMAL Main Lab, [address] [place] [address] Urine Bilirubin August 23, 2019 10:00p m Inconcl due to color NEGATIVE --- 08/23/192224 ---Ur Bili previously reported as: 2+ A Main Lab, [address] [place] [address] Urine Occult Blood August 23 10:00pm Trace-intact NEGATIVE Main Lab, [address] [place] [address] Urinalysis Comment August 23 10:00pm Microscopic not ind. Main Lab, [address] [place] [address] Urinalysis Chemical Comment August 23, 2019 10:00pm Performed at [facility] Test performed at: [facility], [address] [place] [address]. Area Forester Annette Lynch MD. CLIA# [id number]. Main Lab, [address] [place] [address] Icterus Index August 23, 2019 10:02pm < 2.0 0-7 Main Lab, [address] [place] [address] Chemistry Specimen Hemolysis Novembe r 2018 10:02pm < 15.0 0-25 0-25: Specimen Exhibited No Hemolysis. Main Lab, [address] [place] [address] Turbidity August 23, 2019 10:02pm < 20.0 0-20 Main Lab, [address] [place] [address] Sodium Level August 23, 2019 10:02pm 130 meq/L 136-146 Main Lab, [address] [place] [address] Potassium Level August 23, 2019 10:02p m 3.9 meq/L 3.6-5 Main Lab, [address] [place] [address] Chloride Level August 23, 2019 10:02pm 94 meq/L 98-107 Main Lab, [address] [place] [address] Carbon Dioxide Level August 23, 2019 10:02pm 25 MEQ/L 22-30 Main Lab, [address] [place] [address] Anion Gap August 23, 2019 10:02pm 11 meq/L 5-15 Main Lab, [address] [place] [address] Blood Urea Nitrogen August 23 019 10:02pm 30.0 MG/DL 7-17 Main Lab, [address] [place] [address] Creatinine August 23, 2019 10:02pm 1.2 mg/dL 0.7-1.2 Main Lab, [address] [place] [address] Glomerular Filtration Rate Calc Nove mber 2018 10:02pm 43 mL/min >60 Main Lab, [address] [place] [address] Estimated Creatinine Clearance Novem naif 2018 10:02pm 33 mL/min Main Lab, [address] [place], [place] [id number] BUN/Creatinine Ratio August 23, 2019 10:02pm 25 RATIO 6-26 Main Lab, [address] [place] [address] Glucose Level August 23, 2019 10:02pm 162 MG/DL 65-110 Main Lab, [address] [place] [address] Calculated Osmolality August 23, 2019 10:02pm 261 MOSM/KG 261-280 Main Lab, [address] [place] [address] Calcium Level August 23, 2019 10:02pm 10.5 MG/DL 8.4-10.2 Main Lab, [address] [place] [address] Total Bilirubin August 23, 2019 10:02p m 0.90 MG/DL 0.20-1.30 Main Lab, [address] [place] [address] Alkaline Phosphatase August 23, 2019 10:02pm 48 U/L 38-126 Main Lab, [address] [place] [address] Aspartate Amino Transf (AST/SGOT) No [id number] 10:02pm 33 U/L 14-36 Main Lab, [address] [place] [address] Alanine Aminotransferase (ALT/SGPT) August 23, 2019 10:02pm 24 U/L 1-35 Main Lab, [address] [place] [address] Total Protein August 23, 2019 10:02pm 7.9 g/dL 6.3-8.2 Main Lab, [address] [place] [address] Albumin August 23, 2019 10:02pm 4.5 g/dL 3.5-5.0 Main Lab, [address] [place] [address] Globulin August 23, 2019 10:02pm 3.4 G/DL 2.4-3.6 Main Lab, [address] [place] [address] Albumin/Globulin Ratio July 10:02pm 1.3 RATIO 1.1-2.2 Main Lab, [address] [place] [address] Lipase August 23, 2019 10:02pm 48230 U/L 23-300 Test performed at: [facility], [address] [place] [address]. Area Forester Annette Lynch MD. CLIA# [id number]. Main Lab, [address] [place] [address] Chemistry Comments August 23 10:02pm Performed at [facility] Test performed at: [facility], [address] [place] [address]. Area Forester Annette Lynch MD. CLIA# [id number]. Main Lab, [address] [facility] [address] Health Concerns Health Concerns may be documented in an alternate section. Chief Complaint and Reason for Visit Chief Complaint abdm pain Encounters Encounter Location(s) Ar rival/Admit Date Discharge/Depart Date Provider(s) Departed Emergency [facility] nter-Emergency Department August 23, 2019 8:48pm 2019 1:08am null Assessments No Assessments Information Available Functional Status No Functional Status information available Goals Goals may be documented in an alternate section. Immunizations No Immunization Information Available Mental Status No Mental Status Information Available Medical Equipment No Medical Equipment Information available Insurance Providers Guarantor Kaitlyn Siegel Address [address] [facility] [address] Contact Info. Home Phone: Payer Policy Id Coverage Id Subscriber's Name Subscriber Id Effective Date Expiration Date [facility] MCR Supplement [id number] Medicare [id number] July [id number] Self Pay Self N/A [facility] Aarp DO NOT USE [id number] Plan of Treatment Future Tests Future scheduled test information is unavailable Pending Tests Pending diagnostic test information is unavailable Future Visits Future appointment information is unavailable Referrals to Other Providers Reason for Referral Referral Start Date Provider Provider Conta ct Information Provider Address Mitch Yin Work Phone: [address] [place] [address] Dr [address] [facility] [address] Future Procedures Future procedure information is unavailable [...]
--- OUTSIDE RECORDS SUMMARY | 2020-02-18 22:04 | XMS REPORT | Continuity of Care Document ---
[facility] Address [address] [place] [address] Care Team Providers Care Can Inspector Name Role Phone Mitch Yin PCP Mitch [...] PO Daily 0 June 06, 2014 Active [place]-3 Fatty Acids [Fish Oil] 1000 MG Daily [...] (Calcium) 600 MG PO [address] [facility] 2010 Active Ergocalciferol (Vitamin D2) 800 UNIT PO [address] [facility] 2010 Active Ezetimibe 10 MG PO [...] PO Daily 0 June 06, 2014 Active [place]-3 Fatty Acids 1000 MG Daily 0 May [...] Date Discharge/Departure Date Attending Provider Departed Clinical [facility] February 26 1:12pm February 26, 2019 1:13pm Mitch Yin Functional Status No known functional status. Immunizations No known immunizations. Payers Payer Name Policy Type Covered Republican Covered Republican Id Relationship Sub scriber Subscriber Id [employer] [facility] Mcr supplement Commercial [id number] Self/Same As Patient [id number] Medicare Medicare Part A [id number] Self/Same As Patient [id number] Self Pay Personal Payment ([place] - No Insurance) [facility] Aar DO NOT USE Commercial [id number] Self/Same As Diann ent [id number] Plan of Care No Known Plan of Care Information Social History No known social history. Vital Signs No known vital signs results.
--- OUTSIDE RECORDS SUMMARY | 2020-02-18 22:05 | XMS REPORT | Continuity of Care Document ---
Author Author [facility] Organization [facility] Address Unknown Phone Unavailable Support Name Relationship Address Phone EDWARD GEORGES MD Caregiver [address] [place] [address] [address] [place] [phone] OSCAR CANAS MD Caregiver [address] [place] [address] [place] [address] KATHLEEN SIEGEL Next Of Kin Unknown C Insurance Providers Payer Name Policy Number Subscriber Name Relationship Medicarehumana [id number] Kaitlyn Siegel 17 Self Problems Medical Problems Problem Onset Date Status Urticaria Unknown Active Medications Medication Dose Route Sig Days/Qty Instructions Order Date Disc ontinued Date Status Bisoprol/Hydrochlorothiazide 1 Tab PO 2 DAILY 11/06/10 Discontinued Levothyroxine Sodium 200 Mcg PO DAILY 10/24/10 Active Ezetimibe 10 Mg PO DAILY 10/24/10 Activ e Colesevelam Hcl 3 Tab PO TWICE A DAY 10/24/10 Active Pyridoxine Hcl 50 Mg PO DAILY 10/24/10 Active [Vitamin B12] 100MCG. DAILY 10/24/10 Active Fenofibrate Nanocrystallized 145 Mg PO DAILY Active Fosinopril Sodium 20 Mg PO DAILY 10/24/1011/06 Discontinued Folic Acid 1 Mg PO DAILY 10/24/10 Acti ve Rosuvastatin Calcium 20 Mg PO DAILY 10/24/10 Active Irbesartan 300 Mg PO DAILY 10/24/10 11/16/12 Dis continued Aspirin 81 Mg PO DAILY 10/24/10 Active Calcium Carbonate 600 Mg PO 2 DAILY 10/24/10 Active Ergocalciferol 400 Unit PO 2 DAILY 10/24/10 Active Hydrochlorothiazide 1 Tab PO DAILY 11/06/1002/01 Discontinued Nebivolol Hcl 20 Tab PO DAILY 11/06/10 A ctive Chlorthalidone 12.5 Mg PO DAILY 11/16/12 Active Losartan Potassium 100 Mg PO DAILY 11/16/12 Active Alendronate Sodium 70 Mg PO WEEKLY 11/16/12 Active Clopidogrel Bisulfate 1 Tab PO DAILY 06/06/14 Active [place]-3 Fatty Acids 1,000 Mg DAILY 06/06/14 Active Alendronate Sodium WEEKLY 06/06/14 Active Potassium Gluconate 595 Mg DAILY 06/06/14 Active Metformin HCl 500 Mg PO TWICE DAILY WITH MEALS Take one tablet, by mouth, 2 times a day with Meals. 06/06/14 Active Lutein 06/06/14 Active Famotidine 1 Tab PO TWICE A DAY PRN INDIGESTION 0 06/06/14 Active Diphenhydramine HCl 2 Tab PO Every 6 Hours 3 Days Active Prednisone 40 Mg PO GIVE WITH BREAKFAST 3 Days 06/06/14 Active Social History Social History Problem Response Recorded Date/Frantz e Smoking Status Never smoker 06/06/2014 1:00am Hx Substance Use No 06/06/2014 1:00am Hx Alcohol Use No 06/06/2014 1:00am Query Response Start Date Stop Date Smoking Status Unknown if ever smoked Hospital Discharge Instructions No hospital discharge instructions. Plan of Care No plan of care. Functional Status Query Response Date Recorded Physical Hygiene Self June 06, 2014 1:00am Disabilities None June 06, 2014 1:00am Devices Used Glasses June 06, 2014 1:00am Dressing Self June 06, 2014 1:00am Ambulation Self June 06, 2014 1:00am Diet Self June 06, 2014 1:00am Mental Status Alert June 06, 2014 2:11am Disabilities None June 06, 2014 1:00am Devices Used Glasses June 06, 2014 1:00am Physical Hygiene Self June 06, 2014 1:00am Dressing Self June 06, 2014 1:00am Ambulation Self June 06, 2014 1:00am Diet Self June 06, 2014 1:00am Allergies, Adverse Reactions, Alerts Allergen Type Severity Reaction Status Last Updated No Known Drug Allergies Allergy Unknown Active 0 06/06/14 Immunizations Name Given Type Hx Influenza Vaccination Y 2009 Historical Hx Pneumococcal Vaccination Y 2008 Historical Hx Influenza Vaccination Y 2009 Historical Vital Signs Acute Vital Signs Vital Response Date/Time Temperature (Fahrenheit) 97.4 deg F (96.8 - 99.1) Temperature (Calculated Celsius) 36.73858 degrees C (36.0 - 37.3) Pulse Rate (adult) 75 bpm (60 - 100) Respiratory Rate 18 breaths/min (10 - 20) O2 Sat by Pulse Oximetry 96 % (90 - 100) Blood Pressure 127/65 mm Hg Height 5 ft 4 in Weight 172 lb Body Mass Index 29.0 kg/m^2 Results Test Source Date Result Interp. Ref. Range Comments Activated Partial Thromboplast Time November 25, 2010 10:45pm 2 6.6 SEC N 24-36 Alanine Aminotransferase (ALT/SGPT) November 25, 2010 10:45pm 2 4 U/L N 9-52 Albumin November 25, 2010 10:45pm 4.19 G/DL N 3.5-5.0 Albumin/Globulin Ratio November 25, 2010 10:45pm 1.6 RATIO N 1.1-2.2 Alkaline Phosphatase November 25, 2010 10:45pm 47 U/L N 38-126 Anion Gap November 25, 2010 10:45pm 9.6 MEQ/L N 5-15 Aspartate Amino Transf (AST/SGOT) November 25, 2010 10:45pm 30 U/L N 14-36 B-Type Natriuretic Peptide November 25, 2010 10:45pm 226 PG/ML H 15-100 BUN/Creatinine Ratio November 25, 2010 10:45pm 28 RATIO H 6-26 Basophils # (Auto) November 25, 2010 10:45pm 0.1 T/MM3 N 0-0.2 Basophils (%) (Auto) November 25, 2010 10:45pm 0.7 % N 0-2 Blood Urea Nitrogen November 25, 2010 10:45pm 22.4 MG/DL H 7-17 Calcium Level November 25, 2010 10:45pm 9.3 MG/DL N 8.4 -10.2 Calculated Osmolality November 25, 2010 10:45pm 285 MOSM/KG H 261-280 Carbon Dioxide Level November 25, 2010 10:45pm 30 MEQ/L N 22-30 Chloride Level November 25, 2010 10:45pm 104 MEQ/L N 98 -107 Creatinine November 25, 2010 10:45pm 0.8 MG/DL N 0.7-1. 2 D-Dimer November 25, 2010 10:45pm < 150 NG/ML 0-230 <224 NG/ML = PRESUMPTIVE NEGATIVE FOR PE OR DVT>224 NG/ML = ADDITIONAL EVALUATION FOR PE OR DVT RECOMMENDED Eosinophils # (Auto) November 25, 2010 10:45pm 0.2 T/MM3 N 0-0.5 Eosinophils (%) (Auto) November 25, 2010 10:45pm 2.2 % N 0-4 Globulin November 25, 2010 10:45pm 2.6 G/DL N 2.4-3.6 Glucose Level November 25, 2010 10:45pm 179 MG/DL H 65- 110 Hematocrit November 25, 2010 10:45pm 44.2 % N 36-46 Hemoglobin November 25, 2010 10:45pm 15.1 GM/DL N 12-16 Influenza Type A Antigen November 25, 2010 11:30pm Negative - Negative for Flu A protein antigen. Assay sensitivity isbetween 65-83%. A negative result does not exclude influenza virus infection. "Influenza FA" may be ordered if clinical presentation warrants confirmatory testing. Influenza Type B Antigen November 25, 2010 11:30pm Negative - Negative for Flu B protein antigen. Assay sensitivity isbetween 65-83%. A negative result does not exclude influenza virus infection. "Influenza FA" may be ordered if clinical presentation warrants confirmatory testing. Lymphocytes # (Auto) November 25, 2010 10:45pm 2.7 T/MM3 N 1-4.8 Lymphocytes (%) (Auto) November 25, 2010 10:45pm 36.8 % N 23-45 Mean Corpuscular Hemoglobin November 25, 2010 10:45pm 30.9 UUG N 26-34 Mean Corpuscular Hemoglobin Concent November 25, 2010 10:45pm 3 4.2 GM/DL N 31-37 Mean Corpuscular Volume November 25, 2010 10:45pm 90.4 UM3 N 80-100 Mean Platelet Volume November 25, 2010 10:45pm 11.0 UM3 H 7.4-10.4 Monocytes # (Auto) November 25, 2010 10:45pm 0.8 T/MM3 N 0-0.8 Monocytes (%) (Auto) November 25, 2010 10:45pm 10.1 % H 0-9.0 Neutrophils # (Auto) November 25, 2010 10:45pm 3.7 T/MM3 N 1.8-7.7 Neutrophils (%) (Auto) November 25, 2010 10:45pm 50.2 % N 33-66 Platelet Count November 25, 2010 10:45pm 219 T/MM3 N 13 0-400 Potassium Level November 25, 2010 10:45pm 3.6 MEQ/L N 3 .6-5 Prothromb Time International Ratio November 25, 2010 10:45pm 1. 02 N 0.86-1.10 THERAPUTIC RANGE = 2.00-3.00 FOR ANTI-THROMBOSIS THERAPUTIC RANGE = 2.50-3.50 FOR IMPLANTED VALVE RDW Standard Deviation November 25, 2010 10:45pm 43.4 FL N 36.9-50.2 Red Blood Count November 25, 2010 10:45pm 4.89 M/MM3 N 4.00-5.20 Sodium Level November 25, 2010 10:45pm 144 MEQ/L N 134- 144 Total Bilirubin November 25, 2010 10:45pm 0.24 MG/DL N 0.20-1.30 Total Protein November 25, 2010 10:45pm 6.8 G/DL N 6.3 -8.2 Troponin I November 25, 2010 10:45pm 0.000 ng/ml N 0-0. 12 Urine Amorphous Urates November 06, 2010 5:53pm Few - Has specimen been collected/obtained? Y Urine Bacteria November 06, 2010 5:53pm Trace H - Has specimen been collected/obtained? Y Urine Bilirubin November 06, 2010 5:53pm Negative - Has specimen been collected/obtained? Y Urine Blood November 06, 2010 5:53pm Negative - Has specimen been collected/obtained? Y Urine Collection Type November 06, 2010 5:53pm Voided - Has specimen been collected/obtained? Y Urine Color November 06, 2010 5:53pm Yellow - Has specimen been collected/obtained? Y Urine Culture Indicated November 06, 2010 5:53pm Cult not se t up - Has specimen been collected/obtained? Y Urine Glucose (UA) November 06, 2010 5:53pm Negative - Has specimen been collected/obtained? Y Urine Ketones November 06, 2010 5:53pm Negative - Has specimen been collected/obtained? Y Urine Leukocyte Esterase November 06, 2010 5:53pm Trace H - Has specimen been collected/obtained? Y Urine Nitrite November 06, 2010 5:53pm Negative - Has specimen been collected/obtained? Y Urine Protein November 06, 2010 5:53pm Negative - Has specimen been collected/obtained? Y Urine RBC November 06, 2010 5:53pm None seen /HPF - Has specimen been collected/obtained? Y Urine Specific [place] November 06, 2010 5:53pm 1.015 - Has specimen been collected/obtained? Y Urine Squamous Epithelial Cells June 05, 2008 3:49am Fe w - Has specimen been collected/obtained? Y Urine Turbidity November 06, 2010 5:53pm Clear - Has specimen been collected/obtained? Y Urine Urobilinogen November 06, 2010 5:53pm Normal EU/DL - Has specimen been collected/obtained? Y Urine WBC November 06, 2010 5:53pm 1-3 /HPF - Has specimen been collected/obtained? Y Urine pH November 06, 2010 5:53pm 7.0 - Has specimen been collected/obtained? Y White Blood Count November 25, 2010 10:45pm 7.4 T/MM3 N 4.5-11.0 Glomerular Filtration Rate Calc November 25, 2010 10:45pm 70 - Blood Culture Blood November 25, 2010 11:55pm NO GROWTH AFTER 5 DAYS Procedures No known history of procedures. Encounters Encounter Location Date/Time Registered Emergency Room [facility] 06/06/14 12: 51am Recent Diagnosis
--- OUTSIDE RECORDS SUMMARY | 2020-02-18 22:05 | XMS REPORT | Continuity of Care Document ---
Author Organization Unknown Address Unknown Phone Unavailable Allergies Active Description Code Type Severity Reaction Onset Reported/Identified Relationship to Patient Clinical Status Yes MEVACOR [id number] N/A Other Yes MEVACOR [id number] Drug Allergy N/A N/A Yes [id number] Reductase Inhibitors lovastatin Allergy Unknown N/A 11/22 Yes lovastatin Allergy U nknown N/A 06/25/2019 Yes lovastatin lovastatin Drug Allerg y Unknown UNKNOWN 2019 Medications Medication Packaging Start Date St op Date Route Dosage Sig Aspir 81 011 PO 81 mg DAILY Welchol 10/24/19 11 PO 625 mg BID Zetia 10/24/2010 PO 10 mg DAILY Vitamin D 2010 PO 400 unit 2 DAILY Folic Acid 10/24 PO 1 mg DAILY Crestor 10/24/19 11 PO 20 mg DAILY Tricor 1 PO 145 mg DAILY Hygroton 013 PO 25 mg DAILY Losartan Potassium 11/16/2012 PO 100 mg ALVERTO LY TRICOR ORAL 3 ORAL daily LEVOXYL ORAL 12/17/19 13 ORAL daily FENOFIBRATE ORAL 11/23 ORAL daily CARVEDILOL ORAL 12/16 ORAL daily BYSTOLIC ORAL 013 ORAL daily Potassium Gluconate 06/06/2014 PO 500 mg ALVERTO LY Lutein 4 PO 20 mg DAILY Fish Oil 014 PO 500 mg DAILY Diphenhydramine HCl 06/06/2014 PO 25 mg Q6H Clopidogrel 05/25 PO 75 mg DAILY Metformin HCl PO 500 mg BIDWM Vitamin B-6 05/25 PO 50 mg DAILY POTASSIUM GLUCONATE ORAL 11/25/2015 ORAL jamari y METFORMIN HCL ORAL 11/25/2015 ORAL twic e daily CLOPIDOGREL BISULFATE ORAL 11/25/2015 ORAL jamari y Levothyroxine Sodium 12/08/2015 PO 200 mcg DA SILVA Coreg 12/08/2015 PO 12.5 mg BIDWM telmisartan 80 MG Oral Tablet 09/30/2018 02/10/2019 1 Q1D valsartan 160 MG Oral Tablet 11/06/2018 1 Q1D Alendronic acid 70 MG Oral Tablet 02/10/2019 1 Ketoconazole 20 MG/ML Topical Cream 02/10/2019 1 Levothyroxine Sodium 0.175 MG Oral Tablet 04/18/2019 1 Levothyroxine Sodium 0.175 MG Oral Tablet 04/21/2019 1 Vitamin B-12 Tablet 06/25/2019 PO 1,000 mcg DAILY Adult Aspirin PO 81 mg DAILY Zetia 06/25/2019 PO 10 mg DAILY Welchol 06/25/20 19 PO 625 mg BID Glucophage 06/25 PO 500 mg BIDWM Calcium 600 + Vit D Tablet 06/25/2019 PO 1 each DAILY Folic Acid 06/25 PO 0.4 mg DAILY Levothyroxine Sodium 06/25/2019 PO 175 mcg DA SILVA Crestor 06/25/20 19 PO 20 mg HS Fish Oil 1,200 mg Fish Oil 06/25/2019 PO 1 each DAILY Mometasone Furoate 06/25/2019 TP 30 ml PRN Diovan 9 PO 160 mg DAILY Fosamax 70 mg PO 70 mg Q7D Levothyroxine Sodium 0.2 MG Oral Tablet [Levoxyl] 09/23/2019 1 Q1D clopidogrel 75 MG Oral Tablet [Plavix] 01/19/2020 1 Q1D Problems Date Dx Coded Attending Type Code Diagnosis Diagnosed By 02/07/2019 ESTELA BARNETT V70.0 ROUTINE GENERAL MEDICAL EXAMINATION AT A HEALTH CARE FACILITY 02/07/2019 ESTELA BARNETT Z00.00 Encounter for general adult medical examination without abnormal findings 02/07/2019 ESTELA BARNETT M85.80 Other specified disorders of bone density and structure, unspecified site 02/07/2019 ESTELA BARNETT I10 Essential (primary) hypertension 02/07/2019 ESTELA BARNETT E11.65 Type 2 diabetes mellitus with hyperglycemia 02/07/2019 ESTELA BARNETT E78.49 Other hyperlipidemia 02/07/2019 ESTELA BARNETT I25.10 Atherosclerotic heart disease of [place] coronary artery without angina pectoris 02/07/2019 ESTELA BARNETT E03.9 Hypothyroidism, unspecified 02/10/2019 CHERRIE GEORGESAmelia Alba I25.10 Atherosclerotic heart disease of [place] coronary artery without angina pectoris 02/10/2019 CHEYENNEHASEEB MITCH Sky Alba I10 Essential (primary) hypertension 02/10/2019 CHEYENNEHASEEBMITCH Anjali E03.9 Hypothyroidism, unspecified 02/10/2019 MITCH GEORGES B37.2 Candidiasis of skin and nail 07/29/[address] for immunization 2019 Lanette Valladares MD K80.5 0 CALCULUS OF BILE DUCT W/O CHOLANGITIS OR 2019 Lanette Valladares MD E03.9 HYPOTHYROIDISM, UNSPECIFIED 2019 Lanette Valladares MD E11.9 TYPE 2 DIABETES MELLITUS WITHOUT COMPLICATIONS 2019 Lanette Valladares MD I10 ESSENTIAL (PRIMARY) HYPERTENSION 2019 Lanette Valladares MD I25.1 0 ATHSCL HEART DISEASE OF [place] CORONARY ARTERY W/O 2019 Lanette Valladares MD K80.2 1 CALCULUS OF GALLBLADDER W/O CHOLECYSTITIS WITH OBS 2019 Lanette Valladares MD K80.5 0 CALCULUS OF BILE DUCT W/O CHOLANGITIS OR 2019 Lanette Valladares MD K85.1 0 BILIARY ACUTE PANCREATITIS WITHOUT NECROSIS OR INF 2019 Lanette Valladares MD K86.8 9 OTHER SPECIFIED DISEASES OF PANCREAS 2019 Lanette Valladares MD Z66 DO NOT RESUSCITATE 2019 Lanette Valladares MD 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 2019 Lanette Valladares MD Z79.8 4 MARINE SCIENTIST (CURRENT) USE OF ORAL HYPOGLYCEMIC DRUGS 2019 Lanette Valladares MD Z79.8 90 HORMONE REPLACEMENT THERAPY 2019 Lanette Valladares MD Z88.8 ALLERGY STATUS TO OTH DRUG/MEDS/BIOL SUBST STATUS 2019 Lanette Valladares MD Z95.1 PRESENCE OF AORTOCORONARY BYPASS GRAFT 2019 Lanette Valladares MD Z98.8 90 OTHER SPECIFIED POSTPROCEDURAL STATES 09/01/2019 MITCH GEORGES K85.10 Biliary acute pancreatitis without necrosis or infection 09/01/2019 MITCH GEORGES Z91.89 Other specified personal risk factors, not elsewhere classified 09/01/2019 MITCH GEORGES E78.5 Hyperlipidemia, unspecified Procedures Code Description [place] [facility] SCREEND FOR FUTURE FALL RISK;NO FALLS IN PAST YEAR OR 1 WITH NO INJURY 02/07/2019 G0439 [facility] WELLNESS II- MEDICARE 02/07/2019 G0444 MAGN[facility] DEPRESSION SCREENING, 15 MINUTES 02/07/2019 G8510 DEPR ESSION SCREENING NEGATIVE T FOLLOW UP NOT REQUIRED 9 [id number] EXAM -DETAILED. 02/10/2019 67735 FLUZ ONE HIGH DOSE 07/29/2019 G0008 ADMI NISTRATION OF 07/29/2019 G8482 INFL UENZA ADMINISTERED OR PREVIOUSLY GIVEN 07/29/2019 [id number] EXAM -DETAILED. 09/01/2019 Results Test Result Range CMP, SERUM OR PLASMA - 02/07/19 10:38 GLOBULIN, QN, CALCULATED, SERUM 2.1 g/dL 1.5-4.5 ALT (ALANINE AMINOTRANSFERASE), SERUM OR PLASMA 18 IU/L 0-32 ALBUMIN, SERUM OR PLASMA 4.1 g/dL 3.5-4 .7 ALBUMIN:GLOBULIN RATIO, SERUM 2.0 1.2-2.2 CALCIUM, SERUM OR PLASMA 10.1 mg/dL 8.7- 10.3 AST/SGOT (ASPARTATE AMINOTRANSFERASE), SERUM OR PLASMA 28 IU/L 0-40 BILIRUBIN, TOTAL, SERUM OR PLASMA 0.4 mg/dL 0.0-1.2 CO2, (CARBON DIOXIDE), TOTAL, SERUM OR PLASMA 26 m mol/L 20- 29 CHLORIDE, SERUM OR PLASMA 102 mmol/L 96- 106 CREATININE, SERUM OR PLASMA 1.07 mg/dL 0 .57-1.00 GLUCOSE, SERUM OR PLASMA 122 mg/dL 65-99 PROTEIN, TOTAL, SERUM 6.2 g/dL 6.0-8.5 SODIUM, SERUM OR PLASMA 145 mmol/L 134-1 44 BUN (BLOOD UREA NITROGEN), SERUM OR PLASMA 24 mg/d L 8-27 BUN:CREATININE RATIO, SERUM 22 12 -28 ALKALINE PHOSPHATASE, SERUM OR PLASMA 29 IU/L 39-117 EGFR IF NONAFRICN AM 48 mL/min/1.73 >59 EGFR IF AFRICN AM 55 mL/min/1.73 >59 POTASSIUM [MOLES/VOLUME] IN SERUM OR PLASMA 3.6 mm ol/L 3.5- 5.2 LIPID PANEL, SERUM - 02/07/19 10:38 LDL, CALCULATED, SERUM 55 mg/dL 0-99 HDL CHOLESTEROL, SERUM 55 mg/dL >39 CHOLESTEROL, TOTAL, SERUM 138 mg/dL 100- 199 TRIGLYCERIDES, SERUM 141 mg/dL 0-149 CHOLESTEROL IN VLDL [MASS/VOLUME] IN SERUM OR PLASMA B Y CALCULATION 28 mg/dL 5-40 COMMENT: ASSISTANT ASSOCIATE PROFESSOR NRG MICROALBUMIN:CREATININE RATIO, URINE - 0 02/07/19 10:38 MICROALBUMIN, URINE 22.2 ug/mL NOT ESTAB . CREATININE, URINE 132.5 mg/dL NOT ESTAB. ALBUMIN/CREATININE [MASS RATIO] IN URINE 16.8 mg/g creat 0.0-30.0 HBA1C (HEMOGLOBIN A1C), BLOOD - 02/07/19 10:38 HBA1C (HEMOGLOBIN A1C), BLOOD 6.2 % 4.8-5.6 TSH, ULTRA-SENSITIVE, SERUM - 02/07/19 1 0:38 TSH, ULTRA-SENSITIVE, SERUM 4.540 uIU/mL 0.450-4.500 CMP, SERUM OR PLASMA - 02/07/19 10:38 GLOBULIN, QN, CALCULATED, SERUM 2.1 g/dL 1.5-4.5 ALT (ALANINE AMINOTRANSFERASE), SERUM OR PLASMA 18 IU/L 0-32 ALBUMIN, SERUM OR PLASMA 4.1 g/dL 3.5-4 .7 ALBUMIN:GLOBULIN RATIO, SERUM 2.0 1.2-2.2 CALCIUM, SERUM OR PLASMA 10.1 mg/dL 8.7- 10.3 AST/SGOT (ASPARTATE AMINOTRANSFERASE), SERUM OR PLASMA 28 IU/L 0-40 BILIRUBIN, TOTAL, SERUM OR PLASMA 0.4 mg/dL 0.0-1.2 CO2, (CARBON DIOXIDE), TOTAL, SERUM OR PLASMA 26 m mol/L 20- 29 CHLORIDE, SERUM OR PLASMA 102 mmol/L 96- 106 CREATININE, SERUM OR PLASMA 1.07 mg/dL 0 .57-1.00 GLUCOSE, SERUM OR PLASMA 122 mg/dL 65-99 PROTEIN, TOTAL, SERUM 6.2 g/dL 6.0-8.5 SODIUM, SERUM OR PLASMA 145 mmol/L 134-1 44 BUN (BLOOD UREA NITROGEN), SERUM OR PLASMA 24 mg/d L 8-27 BUN:CREATININE RATIO, SERUM 22 12 -28 ALKALINE PHOSPHATASE, SERUM OR PLASMA 29 IU/L 39-117 EGFR IF NONAFRICN AM 48 mL/min/1.73 >59 EGFR IF AFRICN AM 55 mL/min/1.73 >59 POTASSIUM [MOLES/VOLUME] IN SERUM OR PLASMA 3.6 mm ol/L 3.5- 5.2 LIPID PANEL, SERUM - 02/07/19 10:38 LDL, CALCULATED, SERUM 55 mg/dL 0-99 HDL CHOLESTEROL, SERUM 55 mg/dL >39 CHOLESTEROL, TOTAL, SERUM 138 mg/dL 100- 199 TRIGLYCERIDES, SERUM 141 mg/dL 0-149 CHOLESTEROL IN VLDL [MASS/VOLUME] IN SERUM OR PLASMA B Y CALCULATION 28 mg/dL 5-40 COMMENT: ASSISTANT ASSOCIATE PROFESSOR NRG MICROALBUMIN:CREATININE RATIO, URINE - 0 02/07/19 10:38 MICROALBUMIN, URINE 22.2 ug/mL NOT ESTAB . CREATININE, URINE 132.5 mg/dL NOT ESTAB. ALBUMIN/CREATININE [MASS RATIO] IN URINE 16.8 mg/g creat 0.0-30.0 HBA1C (HEMOGLOBIN A1C), BLOOD - 02/07/19 10:38 HBA1C (HEMOGLOBIN A1C), BLOOD 6.2 % 4.8-5.6 TSH, ULTRA-SENSITIVE, SERUM - 02/07/19 1 0:38 TSH, ULTRA-SENSITIVE, SERUM 4.540 uIU/mL 0.450-4.500 L200.0100 - 08/23/19 22:00 POTASSIUM Urine, Void-CC/notCC NR CHLORIDE YELLOW YELLOW ANION GAP CLEAR NRG BLOOD UREA NITROGEN 5.0 5.0-8.0 BUN/CREATININE RATIO TRACE NEGATIVE GLUCOSE NEGATIVE NEGATIVE CALCIUM NEGATIVE NEGATIVE BILIRUBIN, CONJUG & UNCONJUG INCONCL DUE TO COLOR NEGATIVE Specific L[place],Urine >=1.030 1.015-1 .025 Leukocyte Esterase,Urine NEGATIVE NEGAT ADONIS Nitrate,Urine NEGATIVE NEGATIVE Urobilinogen,Urine 0.2 EU/DL NORMAL Occult Blood,Urine - Dipstick TRACE-INTACT NEGATIVE Urine Microscopic (UA) Microscopic Not Ind. NRG L200.5000 - 08/23/19 22:00 HEPATITIS ACUTE PANEL Performed at [facility] [place] [facility] NRG L200.0100 - 08/23/19 22:00 POTASSIUM Urine, Void-CC/notCC NRG CHLORIDE YELLOW YELLOW ANION GAP CLEAR NRG BLOOD UREA NITROGEN 5.0 5.0-8.0 BUN/CREATININE RATIO TRACE NEGATIVE GLUCOSE NEGATIVE NEGATIVE CALCIUM NEGATIVE NEGATIVE BILIRUBIN, CONJUG & UNCONJUG INCONCL DUE TO COLOR NEGATIVE Specific [place],Urine >=1.030 1.015-1 .025 Leukocyte Esterase,Urine NEGATIVE NEGAT ADONIS Nitrate,Urine NEGATIVE NEGATIVE Urobilinogen,Urine 0.2 EU/DL NORMAL Occult Blood,Urine - Dipstick TRACE-INTACT NEGATIVE Urine Microscopic (UA) Microscopic Not Ind. NR L200.5000 - 08/23/19 22:00 HEPATITIS ACUTE PANEL Performed at [facility] [place] [facility] NR L100.0050 - 08/23/19 22:02 WBC - WHITE BLOOD COUNT 8.0 T/MM3 4.5-11 .0 RED BLOOD COUNT 4.66 M/MM3 4.00-5.20 HGB - HEMOGLOBIN 14.5 GM/DL 12-16 HCT - HEMATOCRIT 41.7 % 36-46 MEAN CORPUSCULAR VOLUME 89.5 UM3 80-100 MEAN CORPUSCULAR HGB 31.1 UUG 26-34 MEAN CORPUSCULAR HGB CONC(MCHC 34.8 GM/DL 31-37 RDW STANDARD DEVIATION 43.4 FL 36.9-50 .2 PLT - PLATELET COUNT 222 T/MM3 130-400 MEAN PLATELET VOLUME 10.3 UM3 9.4-12.4 NEUTROPHILS % (AUTO) 79.2 % 33-66 LYMPHOCYTES % (AUTO) 12.4 % 23-45 MONOCYTES % (AUTO) 7.0 % 0-9.0 EOSINOPHILS % (AUTO) 0.8 % 0-4 BASOPHILS % (AUTO) 0.3 % 0-2 IMMATURE GRANULOCYTE % (AUTO) 0.3 % 0.0-0.5 NEUTROPHILS # (AUTO) 6.3 T/MM3 1.8-7.7 LYMPHOCYTES # (AUTO) 1.0 T/MM3 1-4.8 MONOCYTES # (AUTO) 0.6 T/MM3 0-0.8 EOSINOPHILS # (AUTO) 0.1 T/MM3 0-0.5 BASOPHILS # (AUTO) 0.0 T/MM3 0-0.2 IMMATURE GRANULOCYTE # (AUTO) 0.02 T/MM3 0.00-0.03 L100.9991 - 08/23/19 22:02 LPERFHEME Performed at [facility] [place] [facility] NRG L200.0020 - 08/23/19 22:02 FUNGAL CULTURE. 1.2 mg/dL 0.7-1.2 FUNGAL CULTURE, BLOOD. 25 RATIO 6-26 NA - Sodium 130 meq/L 136-146 Potassium 3.9 meq/L 3.6-5 Chloride 94 meq/L 98-107 CO2 - Carbon Dioxide 25 MEQ/L 22-30 Anion Gap 11 meq/L 5-15 BUN - Blood Urea Nitrogen 30.0 MG/DL 7-1 7 Glomerular Filtration Rate 43 mL/min >60 Glucose 162 MG/DL 65-110 Osmolality,Calculated 261 MOSM/KG 261-28 0 Calcium 10.5 MG/DL 8.4-10.2 Bilirubin,Total 0.90 MG/DL 0.20-1.30 Alkaline Phosphatase 48 U/L 38-126 AST - Aspartate Amino Transfer 33 U/L 14-36 TP - Total Protein 7.9 g/dL 6.3-8.2 Albumin Level 4.5 g/dL 3.5-5.0 Globulin 3.4 G/DL 2.4-3.6 Albumin/Globulin Ratio 1.3 RATIO 1.1-2.2 LICTERUS < 2.0 0-7 LHEMOLYSIS < 15.0 0-25 LTURBIDITY < 20.0 0-20 LALTV 24 U/L 1-35 LCGCRCL 33 mL/min >50 L300.4950 - 08/23/19 22:02 Lipase 55136 U/L 23-300 L300.9990 - 08/23/19 22:02 LPERFCHEM Performed at [facility] [place] [facility] NRG L100.0050 - 08/23/19 22:02 WBC - WHITE BLOOD COUNT 8.0 T/MM3 4.5-11 .0 RED BLOOD COUNT 4.66 M/MM3 4.00-5.20 HGB - HEMOGLOBIN 14.5 GM/DL 12-16 HCT - HEMATOCRIT 41.7 % 36-46 MEAN CORPUSCULAR VOLUME 89.5 UM3 80-100 MEAN CORPUSCULAR HGB 31.1 UUG 26-34 MEAN CORPUSCULAR HGB CONC(MCHC 34.8 GM/DL 31-37 RDW STANDARD DEVIATION 43.4 FL 36.9-50 .2 PLT - PLATELET COUNT 222 T/MM3 130-400 MEAN PLATELET VOLUME 10.3 UM3 9.4-12.4 NEUTROPHILS % (AUTO) 79.2 % 33-66 LYMPHOCYTES % (AUTO) 12.4 % 23-45 MONOCYTES % (AUTO) 7.0 % 0-9.0 EOSINOPHILS % (AUTO) 0.8 % 0-4 BASOPHILS % (AUTO) 0.3 % 0-2 IMMATURE GRANULOCYTE % (AUTO) 0.3 % 0.0-0.5 NEUTROPHILS # (AUTO) 6.3 T/MM3 1.8-7.7 LYMPHOCYTES # (AUTO) 1.0 T/MM3 1-4.8 MONOCYTES # (AUTO) 0.6 T/MM3 0-0.8 EOSINOPHILS # (AUTO) 0.1 T/MM3 0-0.5 BASOPHILS # (AUTO) 0.0 T/MM3 0-0.2 IMMATURE GRANULOCYTE # (AUTO) 0.02 T/MM3 0.00-0.03 L100.9991 - 08/23/19 22:02 LPERFHEME Performed at [facility] [place] [facility] NRG L200.0020 - 08/23/19 22:02 FUNGAL CULTURE. 1.2 mg/dL 0.7-1.2 FUNGAL CULTURE, BLOOD. 25 RATIO 6-26 NA - Sodium 130 meq/L 136-146 Potassium 3.9 meq/L 3.6-5 Chloride 94 meq/L 98-107 CO2 - Carbon Dioxide 25 MEQ/L 22-30 Anion Gap 11 meq/L 5-15 BUN - Blood Urea Nitrogen 30.0 MG/DL 7-1 7 Glomerular Filtration Rate 43 mL/min >60 Glucose 162 MG/DL 65-110 Osmolality,Calculated 261 MOSM/KG 261-28 0 Calcium 10.5 MG/DL 8.4-10.2 Bilirubin,Total 0.90 MG/DL 0.20-1.30 Alkaline Phosphatase 48 U/L 38-126 AST - Aspartate Amino Transfer 33 U/L 14-36 TP - Total Protein 7.9 g/dL 6.3-8.2 Albumin Level 4.5 g/dL 3.5-5.0 Globulin 3.4 G/DL 2.4-3.6 Albumin/Globulin Ratio 1.3 RATIO 1.1-2.2 LICTERUS < 2.0 0-7 LHEMOLYSIS < 15.0 0-25 LTURBIDITY < 20.0 0-20 LALTV 24 U/L 1-35 LCGCRCL 33 mL/min >50 L300.4950 - 08/23/19 22:02 Lipase 64235 U/L 23-300 L300.9990 - 08/23/19 22:02 LPERFCHEM Performed at [facility] [place] [facility] NRG GLUCOSE (POC) - 08/24/19 05:42 GLUCOSE (POC) 126 mg/dL 70-99 GLUCOSE (POC) - 08/24/19 05:42 GLUCOSE (POC) 126 mg/dL 70-99 CBC W/DIFF - 08/24/19 07:07 BASOPHIL # 0.0 k/cumm 0.0-0.2 BASOPHIL % 0.4 % 0-1 EOSINOPHIL # 0.0 k/cumm 0.1-0.5 EOSINOPHIL % 0.5 % 2-4 GRANULOCYTE # 6.4 k/cumm 2.0-9.0 GRANULOCYTE % 79.8 % 50-75 LYMPHOCYTE # 0.8 k/cumm 1.0-4.0 LYMPHOCYTE % 9.8 % 20-30 MEAN CELL HGB 30.7 pg 27.0-33.0 MEAN CELL HGB CONCENTRATION 34.6 g/dL 32 .0-37.0 MEAN CELL VOLUME 88.7 fl 80.0-100.0 MONOCYTE # 0.7 k/cumm 0.1-1.0 MONOCYTE % 8.8 % 4-6 MEAN PLATELET VOLUME 10.3 fl 8.5-10.9 RED BLOOD CELL 4.62 m/cumm 4.00-6.00 RED CELL DISTRIBUTION WIDTH 13.2 % 11 .0-15.6 WHITE BLOOD CELL 8.1 k/cumm 5.0-10.0 HEMOGLOBIN 14.2 gm/dL 12.0-16.0 HEMATOCRIT 41.0 % 37.0-47.0 NRBC % 0.0 /100 WBC 0.0-0.0 PLATELET COUNT 184 k/cumm 150-400 IMMATURE GRANULOCYTE % 0.7 % 0.0-0.6 IMMATURE GRANULOCYTE # 0.06 k/cumm 0.00- 0.09 PROTHROMBIN TIME WITH INR - 08/24/19 07: 07 INTERNATIONAL NORMAL RATIO 1.1 0.9 -1.1 PROTHROMBIN TIME 13.2 sec 10.1-13.3 METABOLIC PANEL, COMPREHN - 08/24/19 07: 07 POTASSIUM 3.4 mmol/L 3.5-5.3 EST GFR (MDRD) 53 mL/min > 59 ANION GAP 10 mmol/L 5-15 EST CrCl (CG) 39 mL/min > 59 GLUCOSE 135 mg/dL 70-99 CALCIUM 8.9 mg/dL 8.5-10.1 BLOOD UREA NITROGEN 27 mg/dL 7-20 CREATININE 1.00 mg/dL 0.60-1.00 SODIUM 133 mmol/L 135-148 CHLORIDE 99 mmol/L 98-110 AST/SGOT 23 Units/L 10-37 ALT/SGPT 24 Units/L < 66 CARBON DIOXIDE 24 mmol/L 21-32 TOTAL PROTEIN 6.8 gm/dL 6.4-8.2 ALBUMIN 3.2 gm/dL 3.4-5.0 BILI TOTAL 0.5 mg/dL 0.0-1.0 ALKALINE PHOSPHATASE TOTAL 38 IU/L 45- 117 LIPASE - 08/24/19 07:07 LIPASE > 7500 Units/L 73-393 CBC W/DIFF - 08/24/19 07:07 BASOPHIL # 0.0 k/cumm 0.0-0.2 BASOPHIL % 0.4 % 0-1 EOSINOPHIL # 0.0 k/cumm 0.1-0.5 EOSINOPHIL % 0.5 % 2-4 GRANULOCYTE # 6.4 k/cumm 2.0-9.0 GRANULOCYTE % 79.8 % 50-75 LYMPHOCYTE # 0.8 k/cumm 1.0-4.0 LYMPHOCYTE % 9.8 % 20-30 MEAN CELL HGB 30.7 pg 27.0-33.0 MEAN CELL HGB CONCENTRATION 34.6 g/dL 32 .0-37.0 MEAN CELL VOLUME 88.7 fl 80.0-100.0 MONOCYTE # 0.7 k/cumm 0.1-1.0 MONOCYTE % 8.8 % 4-6 MEAN PLATELET VOLUME 10.3 fl 8.5-10.9 RED BLOOD CELL 4.62 m/cumm 4.00-6.00 RED CELL DISTRIBUTION WIDTH 13.2 % 11 .0-15.6 WHITE BLOOD CELL 8.1 k/cumm 5.0-10.0 HEMOGLOBIN 14.2 gm/dL 12.0-16.0 HEMATOCRIT 41.0 % 37.0-47.0 NRBC % 0.0 /100 WBC 0.0-0.0 PLATELET COUNT 184 k/cumm 150-400 IMMATURE GRANULOCYTE % 0.7 % 0.0-0.6 IMMATURE GRANULOCYTE # 0.06 k/cumm 0.00- 0.09 PROTHROMBIN TIME WITH INR - 08/24/19 07: 07 INTERNATIONAL NORMAL RATIO 1.1 0.9 -1.1 PROTHROMBIN TIME 13.2 sec 10.1-13.3 METABOLIC PANEL, COMPREHN - 08/24/19 07: 07 POTASSIUM 3.4 mmol/L 3.5-5.3 EST GFR (MDRD) 53 mL/min > 59 ANION GAP 10 mmol/L 5-15 EST CrCl (CG) 39 mL/min > 59 GLUCOSE 135 mg/dL 70-99 CALCIUM 8.9 mg/dL 8.5-10.1 BLOOD UREA NITROGEN 27 mg/dL 7-20 CREATININE 1.00 mg/dL 0.60-1.00 SODIUM 133 mmol/L 135-148 CHLORIDE 99 mmol/L 98-110 AST/SGOT 23 Units/L 10-37 ALT/SGPT 24 Units/L < 66 CARBON DIOXIDE 24 mmol/L 21-32 TOTAL PROTEIN 6.8 gm/dL 6.4-8.2 ALBUMIN 3.2 gm/dL 3.4-5.0 BILI TOTAL 0.5 mg/dL 0.0-1.0 ALKALINE PHOSPHATASE TOTAL 38 IU/L 45- 117 LIPASE - 08/24/19 07:07 LIPASE > 7500 Units/L 73-393 GLUCOSE (POC) - 08/24/19 11:56 GLUCOSE (POC) 163 mg/dL 70-99 GLUCOSE (POC) - 08/24/19 11:56 GLUCOSE (POC) 163 mg/dL 70-99 GLUCOSE (POC) - 08/24/19 17:50 GLUCOSE (POC) 151 mg/dL 70-99 GLUCOSE (POC) - 08/24/19 17:50 GLUCOSE (POC) 151 mg/dL 70-99 GLUCOSE (POC) - 08/25/19 00:07 GLUCOSE (POC) 142 mg/dL 70-99 GLUCOSE (POC) - 08/25/19 00:07 GLUCOSE (POC) 142 mg/dL 70-99 CBC W/DIFF - 08/25/19 04:32 BASOPHIL # 0.0 k/cumm 0.0-0.2 BASOPHIL % 0.4 % 0-1 EOSINOPHIL # 0.1 k/cumm 0.1-0.5 EOSINOPHIL % 1.6 % 2-4 GRANULOCYTE # 3.9 k/cumm 2.0-9.0 GRANULOCYTE % 69.8 % 50-75 LYMPHOCYTE # 0.9 k/cumm 1.0-4.0 LYMPHOCYTE % 17.0 % 20-30 MEAN CELL HGB 29.6 pg 27.0-33.0 MEAN CELL HGB CONCENTRATION 33.2 g/dL 32 .0-37.0 MEAN CELL VOLUME 89.1 fl 80.0-100.0 MONOCYTE # 0.6 k/cumm 0.1-1.0 MONOCYTE % 10.7 % 4-6 MEAN PLATELET VOLUME 10.1 fl 8.5-10.9 RED BLOOD CELL 4.42 m/cumm 4.00-6.00 RED CELL DISTRIBUTION WIDTH 13.2 % 11 .0-15.6 WHITE BLOOD CELL 5.5 k/cumm 5.0-10.0 HEMOGLOBIN 13.1 gm/dL 12.0-16.0 HEMATOCRIT 39.4 % 37.0-47.0 NRBC % 0.0 /100 WBC 0.0-0.0 PLATELET COUNT 179 k/cumm 150-400 IMMATURE GRANULOCYTE % 0.5 % 0.0-0.6 IMMATURE GRANULOCYTE # 0.03 k/cumm 0.00- 0.09 METABOLIC PANEL, [facility] - 08/25/19 04: 32 POTASSIUM 3.7 mmol/L 3.5-5.3 EST GFR (MDRD) 53 mL/min > 59 ANION GAP 8 mmol/L 5-15 EST CrCl (CG) 39 mL/min > 59 GLUCOSE 146 mg/dL 70-99 CALCIUM 8.4 mg/dL 8.5-10.1 BLOOD UREA NITROGEN 23 mg/dL 7-20 CREATININE 1.00 mg/dL 0.60-1.00 SODIUM 133 mmol/L 135-148 CHLORIDE 100 mmol/L 98-110 AST/SGOT 24 Units/L 10-37 ALT/SGPT 21 Units/L < 66 CARBON DIOXIDE 25 mmol/L 21-32 TOTAL PROTEIN 6.4 gm/dL 6.4-8.2 ALBUMIN 3.0 gm/dL 3.4-5.0 BILI TOTAL 0.6 mg/dL 0.0-1.0 ALKALINE PHOSPHATASE TOTAL 34 IU/L 45- 117 LIPID PANEL - 08/25/19 04:32 CHOLESTEROL/HDL RATIO 4.3 < 5.0 LDL CHOLESTEROL 70 mg/dL < 100 VLDL CHOLESTEROL 53 mg/dL < 30 TRIGLYCERIDES 266 mg/dL < 150 CHOLESTEROL 160 mg/dL < 200 HDL CHOLESTEROL 37 mg/dL > 39 PHOSPHORUS - 08/25/19 04:32 PHOSPHORUS 2.3 mg/dL 2.5-4.9 LIPASE - 08/25/19 04:32 LIPASE 1263 Units/L 73-393 T4 FREE - 08/25/19 04:32 T4 FREE 0.9 ng/dL 0.8-1.8 TSH WITH REFLEX TO FT4 - 08/25/19 04:32 THYROID STIM HORMONE (TSH) 44.00 uIU/mL 0.34-4.82 CBC W/DIFF - 08/25/19 04:32 BASOPHIL # 0.0 k/cumm 0.0-0.2 BASOPHIL % 0.4 % 0-1 EOSINOPHIL # 0.1 k/cumm 0.1-0.5 EOSINOPHIL % 1.6 % 2-4 GRANULOCYTE # 3.9 k/cumm 2.0-9.0 GRANULOCYTE % 69.8 % 50-75 LYMPHOCYTE # 0.9 k/cumm 1.0-4.0 LYMPHOCYTE % 17.0 % 20-30 MEAN CELL HGB 29.6 pg 27.0-33.0 MEAN CELL HGB CONCENTRATION 33.2 g/dL 32 .0-37.0 MEAN CELL VOLUME 89.1 fl 80.0-100.0 MONOCYTE # 0.6 k/cumm 0.1-1.0 MONOCYTE % 10.7 % 4-6 MEAN PLATELET VOLUME 10.1 fl 8.5-10.9 RED BLOOD CELL 4.42 m/cumm 4.00-6.00 RED CELL DISTRIBUTION WIDTH 13.2 % 11 .0-15.6 WHITE BLOOD CELL 5.5 k/cumm 5.0-10.0 HEMOGLOBIN 13.1 gm/dL 12.0-16.0 HEMATOCRIT 39.4 % 37.0-47.0 NRBC % 0.0 /100 WBC 0.0-0.0 PLATELET COUNT 179 k/cumm 150-400 IMMATURE GRANULOCYTE % 0.5 % 0.0-0.6 IMMATURE GRANULOCYTE # 0.03 k/cumm 0.00- 0.09 METABOLIC PANEL, COMPREHN - 08/25/19 04: 32 POTASSIUM 3.7 mmol/L 3.5-5.3 EST GFR (MDRD) 53 mL/min > 59 ANION GAP 8 mmol/L 5-15 EST CrCl (CG) 39 mL/min > 59 GLUCOSE 146 mg/dL 70-99 CALCIUM 8.4 mg/dL 8.5-10.1 BLOOD UREA NITROGEN 23 mg/dL 7-20 CREATININE 1.00 mg/dL 0.60-1.00 SODIUM 133 mmol/L 135-148 CHLORIDE 100 mmol/L 98-110 AST/SGOT 24 Units/L 10-37 ALT/SGPT 21 Units/L < 66 CARBON DIOXIDE 25 mmol/L 21-32 TOTAL PROTEIN 6.4 gm/dL 6.4-8.2 ALBUMIN 3.0 gm/dL 3.4-5.0 BILI TOTAL 0.6 mg/dL 0.0-1.0 ALKALINE PHOSPHATASE TOTAL 34 IU/L 45- 117 LIPID PANEL - 08/25/19 04:32 CHOLESTEROL/HDL RATIO 4.3 < 5.0 LDL CHOLESTEROL 70 mg/dL < 100 VLDL CHOLESTEROL 53 mg/dL < 30 TRIGLYCERIDES 266 mg/dL < 150 CHOLESTEROL 160 mg/dL < 200 HDL CHOLESTEROL 37 mg/dL > 39 PHOSPHORUS - 08/25/19 04:32 PHOSPHORUS 2.3 mg/dL 2.5-4.9 LIPASE - 08/25/19 04:32 LIPASE 1263 Units/L 73-393 T4 FREE - 08/25/19 04:32 T4 FREE 0.9 ng/dL 0.8-1.8 TSH WITH REFLEX TO FT4 - 08/25/19 04:32 THYROID STIM HORMONE (TSH) 44.00 uIU/mL 0.34-4.82 GLUCOSE (POC) - 08/25/19 06:08 GLUCOSE (POC) 156 mg/dL 70-99 GLUCOSE (POC) - 08/25/19 06:08 GLUCOSE (POC) 156 mg/dL 70-99 TOTAL T3 - 08/25/19 08:40 TOTAL T3 52 ng/dL 60-181 TOTAL T3 - 08/25/19 08:40 TOTAL T3 52 ng/dL 60-181 GLUCOSE (POC) - 08/25/19 11:49 GLUCOSE (POC) 160 mg/dL 70-99 GLUCOSE (POC) - 08/25/19 11:49 GLUCOSE (POC) 160 mg/dL 70-99 GLUCOSE (POC) - 08/25/19 17:21 GLUCOSE (POC) 174 mg/dL 70-99 GLUCOSE (POC) - 08/25/19 17:21 GLUCOSE (POC) 174 mg/dL 70-99 GLUCOSE (POC) - 08/25/19 20:04 GLUCOSE (POC) 102 mg/dL 70-99 GLUCOSE (POC) - 08/25/19 20:04 GLUCOSE (POC) 102 mg/dL 70-99 GLUCOSE (POC) - 08/26/19 04:40 GLUCOSE (POC) 107 mg/dL 70-99 GLUCOSE (POC) - 08/26/19 04:40 GLUCOSE (POC) 107 mg/dL 70-99 CBC W/DIFF - 08/26/19 06:51 BASOPHIL # 0.0 k/cumm 0.0-0.2 BASOPHIL % 0.5 % 0-1 EOSINOPHIL # 0.1 k/cumm 0.1-0.5 EOSINOPHIL % 1.9 % 2-4 GRANULOCYTE # 2.8 k/cumm 2.0-9.0 GRANULOCYTE % 67.4 % 50-75 LYMPHOCYTE # 0.8 k/cumm 1.0-4.0 LYMPHOCYTE % 19.9 % 20-30 MEAN CELL HGB 32.4 pg 27.0-33.0 MEAN CELL HGB CONCENTRATION 36.0 g/dL 32 .0-37.0 MEAN CELL VOLUME 89.8 fl 80.0-100.0 MONOCYTE # 0.4 k/cumm 0.1-1.0 MONOCYTE % 9.8 % 4-6 MEAN PLATELET VOLUME 9.9 fl 8.5-10.9 RED BLOOD CELL 4.42 m/cumm 4.00-6.00 RED CELL DISTRIBUTION WIDTH 13.2 % 11 .0-15.6 WHITE BLOOD CELL 4.2 k/cumm 5.0-10.0 HEMOGLOBIN 14.3 gm/dL 12.0-16.0 HEMATOCRIT 39.7 % 37.0-47.0 NRBC % 0.0 /100 WBC 0.0-0.0 PLATELET COUNT 187 k/cumm 150-400 IMMATURE GRANULOCYTE % 0.5 % 0.0-0.6 IMMATURE GRANULOCYTE # 0.02 k/cumm 0.00- 0.09 CBC W/DIFF - 08/26/19 06:51 BASOPHIL # 0.0 k/cumm 0.0-0.2 BASOPHIL % 0.5 % 0-1 EOSINOPHIL # 0.1 k/cumm 0.1-0.5 EOSINOPHIL % 1.9 % 2-4 GRANULOCYTE # 2.8 k/cumm 2.0-9.0 GRANULOCYTE % 67.4 % 50-75 LYMPHOCYTE # 0.8 k/cumm 1.0-4.0 LYMPHOCYTE % 19.9 % 20-30 MEAN CELL HGB 32.4 pg 27.0-33.0 MEAN CELL HGB CONCENTRATION 36.0 g/dL 32 .0-37.0 MEAN CELL VOLUME 89.8 fl 80.0-100.0 MONOCYTE # 0.4 k/cumm 0.1-1.0 MONOCYTE % 9.8 % 4-6 MEAN PLATELET VOLUME 9.9 fl 8.5-10.9 RED BLOOD CELL 4.42 m/cumm 4.00-6.00 RED CELL DISTRIBUTION WIDTH 13.2 % 11 .0-15.6 WHITE BLOOD CELL 4.2 k/cumm 5.0-10.0 HEMOGLOBIN 14.3 gm/dL 12.0-16.0 HEMATOCRIT 39.7 % 37.0-47.0 NRBC % 0.0 /100 WBC 0.0-0.0 PLATELET COUNT 187 k/cumm 150-400 IMMATURE GRANULOCYTE % 0.5 % 0.0-0.6 IMMATURE GRANULOCYTE # 0.02 k/cumm 0.00- 0.09 METABOLIC PANEL, [facility] - 08/26/19 06: 56 POTASSIUM 3.6 mmol/L 3.5-5.3 EST GFR (MDRD) 47 mL/min > 59 ANION GAP 7 mmol/L 5-15 EST CrCl (CG) 36 mL/min > 59 GLUCOSE 109 mg/dL 70-99 CALCIUM 9.1 mg/dL 8.5-10.1 BLOOD UREA NITROGEN 17 mg/dL 7-20 CREATININE 1.10 mg/dL 0.60-1.00 SODIUM 136 mmol/L 135-148 CHLORIDE 103 mmol/L 98-110 AST/SGOT 32 Units/L 10-37 ALT/SGPT 25 Units/L < 66 CARBON DIOXIDE 26 mmol/L 21-32 TOTAL PROTEIN 6.5 gm/dL 6.4-8.2 ALBUMIN 3.0 gm/dL 3.4-5.0 BILI TOTAL 0.4 mg/dL 0.0-1.0 ALKALINE PHOSPHATASE TOTAL 36 IU/L 45- 117 PHOSPHORUS - 08/26/19 06:56 PHOSPHORUS 2.8 mg/dL 2.5-4.9 MAGNESIUM - 08/26/19 06:56 MAGNESIUM 2.0 mg/dL 1.8-2.4 LIPASE - 08/26/19 06:56 LIPASE 557 Units/L 73-393 METABOLIC PANEL, COMPREHN - 08/26/19 06: 56 POTASSIUM 3.6 mmol/L 3.5-5.3 EST GFR (MDRD) 47 mL/min > 59 ANION GAP 7 mmol/L 5-15 EST CrCl (CG) 36 mL/min > 59 GLUCOSE 109 mg/dL 70-99 CALCIUM 9.1 mg/dL 8.5-10.1 BLOOD UREA NITROGEN 17 mg/dL 7-20 CREATININE 1.10 mg/dL 0.60-1.00 SODIUM 136 mmol/L 135-148 CHLORIDE 103 mmol/L 98-110 AST/SGOT 32 Units/L 10-37 ALT/SGPT 25 Units/L < 66 CARBON DIOXIDE 26 mmol/L 21-32 TOTAL PROTEIN 6.5 gm/dL 6.4-8.2 ALBUMIN 3.0 gm/dL 3.4-5.0 BILI TOTAL 0.4 mg/dL 0.0-1.0 ALKALINE PHOSPHATASE TOTAL 36 IU/L 45- 117 PHOSPHORUS - 08/26/19 06:56 PHOSPHORUS 2.8 mg/dL 2.5-4.9 MAGNESIUM - 08/26/19 06:56 MAGNESIUM 2.0 mg/dL 1.8-2.4 LIPASE - 08/26/19 06:56 LIPASE 557 Units/L 73-393 GLUCOSE (POC) - 08/26/19 11:15 GLUCOSE (POC) 125 mg/dL 70-99 GLUCOSE (POC) - 08/26/19 11:15 GLUCOSE (POC) 125 mg/dL 70-99 GLUCOSE (POC) - 08/26/19 16:04 GLUCOSE (POC) 97 mg/dL 70-99 GLUCOSE (POC) - 08/26/19 16:04 GLUCOSE (POC) 97 mg/dL 70-99 CMP, SERUM OR PLASMA - 10/21/19 13:04 GLOBULIN, QN, CALCULATED, SERUM 2.5 g/dL 1.5-4.5 ALT (ALANINE AMINOTRANSFERASE), SERUM OR PLASMA 14 IU/L 0-32 ALBUMIN, SERUM OR PLASMA 3.9 g/dL 3.6-4 .6 ALBUMIN:GLOBULIN RATIO, SERUM 1.6 1.2-2.2 CALCIUM, SERUM OR PLASMA 10.1 mg/dL 8.7- 10.3 AST/SGOT (ASPARTATE AMINOTRANSFERASE), SERUM OR PLASMA 21 IU/L 0-40 BILIRUBIN, TOTAL, SERUM OR PLASMA 0.5 mg/dL 0.0-1.2 CO2, (CARBON DIOXIDE), TOTAL, SERUM OR PLASMA 27 m mol/L 20- 29 CHLORIDE, SERUM OR PLASMA 97 mmol/L 96-1 06 CREATININE, SERUM OR PLASMA 0.83 mg/dL 0 .57-1.00 GLUCOSE, SERUM OR PLASMA 163 mg/dL 65-99 PROTEIN, TOTAL, SERUM 6.4 g/dL 6.0-8.5 SODIUM, SERUM OR PLASMA 140 mmol/L 134-1 44 BUN (BLOOD UREA NITROGEN), SERUM OR PLASMA 17 mg/d L 8-27 BUN:CREATININE RATIO, SERUM 20 12 -28 ALKALINE PHOSPHATASE, SERUM OR PLASMA 54 IU/L 39-117 EGFR IF NONAFRICN AM 65 mL/min/1.73 >59 EGFR IF AFRICN AM 74 mL/min/1.73 >59 POTASSIUM [MOLES/VOLUME] IN SERUM OR PLASMA 4.0 mm ol/L 3.5- 5.2 T3, FREE, SERUM OR PLASMA - 10/21/19 13: 04 T3, FREE, SERUM OR PLASMA 2.9 pg/mL 2.0- 4.4 CMP, SERUM OR PLASMA - 10/21/19 13:04 GLOBULIN, QN, CALCULATED, SERUM 2.5 g/dL 1.5-4.5 ALT (ALANINE AMINOTRANSFERASE), SERUM OR PLASMA 14 IU/L 0-32 ALBUMIN, SERUM OR PLASMA 3.9 g/dL 3.6-4 .6 ALBUMIN:GLOBULIN RATIO, SERUM 1.6 1.2-2.2 CALCIUM, SERUM OR PLASMA 10.1 mg/dL 8.7- 10.3 AST/SGOT (ASPARTATE AMINOTRANSFERASE), SERUM OR PLASMA 21 IU/L 0-40 BILIRUBIN, TOTAL, SERUM OR PLASMA 0.5 mg/dL 0.0-1.2 CO2, (CARBON DIOXIDE), TOTAL, SERUM OR PLASMA 27 m mol/L 20- 29 CHLORIDE, SERUM OR PLASMA 97 mmol/L 96-1 06 CREATININE, SERUM OR PLASMA 0.83 mg/dL 0 .57-1.00 GLUCOSE, SERUM OR PLASMA 163 mg/dL 65-99 PROTEIN, TOTAL, SERUM 6.4 g/dL 6.0-8.5 SODIUM, SERUM OR PLASMA 140 mmol/L 134-1 44 BUN (BLOOD UREA NITROGEN), SERUM OR PLASMA 17 mg/d L 8-27 BUN:CREATININE RATIO, SERUM 20 12 -28 ALKALINE PHOSPHATASE, SERUM OR PLASMA 54 IU/L 39-117 EGFR IF NONAFRICN AM 65 mL/min/1.73 >59 EGFR IF AFRICN AM 74 mL/min/1.73 >59 POTASSIUM [MOLES/VOLUME] IN SERUM OR PLASMA 4.0 mm ol/L 3.5- 5.2 T3, FREE, SERUM OR PLASMA - 10/21/19 13: 04 T3, FREE, SERUM OR PLASMA 2.9 pg/mL 2.0- 4.4 Radiology Report from [facility] on 02/24/20 07:46:00 [facility] [place] [address] [place] [address] Breast Ultrasound Signed Patient: Jeevan Jackson MR#: [id number] : 1935 Age/Sex: 81 / F ADM Date: 02/22/17 Loc: . DIS Date: 02/22/17 = = = = = = = = = = = = = = = = = = = = = = = = = = = = = = = = = = = = = = = = = = = = = = = = = = = = = = = = = = = Date of Exam: 02/22/17 Ordering Provider: Mitch Georges MD Type of Exam(s): US breast LT limited Reason for Exam(s): INCONCLUSIVE MAMMO R92.2 #87.001 - US BREAST LT LIMITED ULTRASOUND OF LEFT BREAST: 02/22/2017 CLINICAL: R92.2-Inconclusive mammogram. Comparison is made to exams dated: 02/22/2017 mammogram, 02/15/2017 mammogram, and 02/15/2016 mammogram - [facility]. Real-time ultrasound of the left breast was performed. Thomas scale images of the real- time examination were reviewed. No abnormalities were seen sonographically in the left breast. Directed ultrasound exam of the left breast was performed from 10 to 3 o'clock to evaluate the patient's mammographic abnormality. There are no solid or cystic masses identified. IMPRESSION: NEGATIVE There is no sonographic evidence of malignancy. A 1 year screening mammogram is recommended. Dr. Thong Barahona [facility]/:02/22/2017 11:46:58 Restaurant Operations Manager: Claudia BURNS, [facility] Ultrasound BI-RADS: 1 Negative Radiology Report from [facility] on 02/24/20 07:46:00 [facility] [place] [address] [place] [address] Breast Ultrasound Signed Patient: Jeevan Jackson MR#: [id number] : 1935 Age/Sex: 81 / F ADM Date: 02/22/17 Loc: .BC DIS Date: 02/22/17 = = = = = = = = = = = = = = = = = = = = = = = = = = = = = = = = = = = = = = = = = = = = = = = = = = = = = = = = = = = Date of Exam: 02/22/17 Ordering Provider: Mitch Georges MD Type of Exam(s): US breast LT limited Reason for Exam(s): INCONCLUSIVE MAMMO R92.2 #87.001 - US BREAST LT LIMITED ULTRASOUND OF LEFT BREAST: 02/22/2017 CLINICAL: R92.2-Inconclusive mammogram. Comparison is made to exams dated: 02/22/2017 mammogram, 02/15/2017 mammogram, and 02/15/2016 mammogram - [facility]. Real-time ultrasound of the left breast was performed. Thomas scale images of the real- time examination were reviewed. No abnormalities were seen sonographically in the left breast. Directed ultrasound exam of the left breast was performed from 10 to 3 o'clock to evaluate the patient's mammographic abnormality. There are no solid or cystic masses identified. IMPRESSION: NEGATIVE There is no sonographic evidence of malignancy. A 1 year screening mammogram is recommended. Dr. Thong Barahona [facility]/:02/22/2017 11:46:58 Restaurant Operations Manager: Claudia BURNS, [facility] Ultrasound BI-RADS: 1 Negative Radiology Report from [facility] on 02/24/20 07:46:00 [facility] [address] [place] [address] Mammography Report Signed Patient: Jeevan Jackson MR#: [id number] : 1935 Age/Sex: 81 / F ADM Date: 02/22/17 Loc: WC.BC DIS Date: 02/22/17 = = = = = = = = = = = = = = = = = = = = = = = = = = = = = = = = = = = = = = = = = = = = = = = = = = = = = = = = = = = Date of Exam: 02/22/17 Ordering Provider: Mitch Georges MD Type of Exam(s): MM diagnostic mammo unilat LT Reason for Exam(s): R92.2 INCONLUSIVE MAMMO #84.001 - MM DIAGNOSTIC MAMMO UNILAT LT UNILATERAL LEFT DIGITAL DIAGNOSTIC MAMMOGRAM: 02/22/2017 CLINICAL: R92.2- Inconclusive mammogram. Comparison is made to exams dated: 02/15/2017 mammogram, 02/15/2016 mammogram, 02/14/2013 mammogram, 02/12/2012 mammogram, and 02/10/2011 mammogram - [facility]. There are scattered areas of fibroglandular density in the left breast. There are benign vascular calcifications and calcifications left breast. There also are benign densities left breast. There is an asymmetry in the left breast anterior depth superior region seen on the mediolateral oblique view only. This is less prominent with compression. No other significant masses or calcifications are seen in the breast. IMPRESSION: BENIGN The asymmetry in the left breast is consistent with overlapping fibroglandular tissue and is benign. There is no mammographic evidence of malignancy. A 1 year screening mammogram is recommended. The patient was notified of the results. Dr. Thong Barahona [facility]/:02/22/2017 11:46:05 Restaurant Operations Manager: Eveline DEE(Samreen)(Octavio), [facility] [place] [facility] letter sent: Normal/Benign Category 1/2 BI-RADS: 2 Benign Radiology Report from [facility] on 02/24/20 07:46:00 [facility] at [place] [address] [place] [address] Mammography Report Signed Patient: Jeevan Jackson MR#: [id number] : 1935 Age/Sex: 81 / F ADM Date: 02/22/17 Loc: WC.BC DIS Date: 02/22/17 = = = = = = = = = = = = = = = = = = = = = = = = = = = = = = = = = = = = = = = = = = = = = = = = = = = = = = = = = = = Date of Exam: 02/22/17 Ordering Provider: Mitch Georges MD Type of Exam(s): MM diagnostic mammo unilat LT Reason for Exam(s): R92.2 INCONLUSIVE MAMMO #84.001 - MM DIAGNOSTIC MAMMO UNILAT LT UNILATERAL LEFT DIGITAL DIAGNOSTIC MAMMOGRAM: 02/22/2017 CLINICAL: R92.2- Inconclusive mammogram. Comparison is made to exams dated: 02/15/2017 mammogram, 02/15/2016 mammogram, 02/14/2013 mammogram, 02/12/2012 mammogram, and 02/10/2011 mammogram - [facility] [place] [facility]. There are scattered areas of fibroglandular density in the left breast. There are benign vascular calcifications and calcifications left breast. There also are benign densities left breast. There is an asymmetry in the left breast anterior depth superior region seen on the mediolateral oblique view only. This is less prominent with compression. No other significant masses or calcifications are seen in the breast. IMPRESSION: BENIGN The asymmetry in the left breast is consistent with overlapping fibroglandular tissue and is benign. There is no mammographic evidence of malignancy. A 1 year screening mammogram is recommended. The patient was notified of the results. Dr. Thong Barahona [facility]/:02/22/2017 11:46:05 Restaurant Operations Manager: Eveline Carroll RT(Samreen)(Octavio), [facility] [place] [facility] letter sent: Normal/Benign Category 1/2 BI-RADS: 2 Benign Radiology Report from [facility] on 018 15:40:00 [facility] at [address] [address] Mammography Report Signed Patient: Jeevan Jackson MR#: [id number] : 1935 Age/Sex: 82 / F ADM Date: 02/25/18 Loc: RUFINA DIS Date: = = = = = = = = = = = = = = = = = = = = = = = = = = = = = = = = = = = = = = = = = = = = = = = = = = = = = = = = = = = Date of Exam: 02/25/18 Ordering Provider: Estela Barnett APRN Type of Exam(s): MM screening erma BI w/nj Reason for Exam(s): Z12.31 Screening; N95.8 Other specified menopausal #65223.001 - MM SCREENING ERMA BI W/NJ BILATERAL DIGITAL SCREENING MAMMOGRAM 3D/2D WITH CAD: 02/25/2018 CLINICAL: Z12.31-Encounter for screening mammogram. Digital Breast Tomosynthesis was performed. Current study was also evaluated with a Computer Aided Detection (CAD) system. Comparison is made to exams dated: 02/22/2017 mammogram, 02/15/2017 mammogram, 02/15/2016 mammogram, 02/14/2013 mammogram, 02/12/2012 mammogram, and 02/10/2011 mammogram - [facility] at [facility]. The tissue of both breasts is heterogeneously dense, which may obscure small masses. There are benign vascular calcifications and calcifications both breasts. There also are benign densities and lymph nodes both breasts. No significant masses, calcifications, or other findings are seen in either breast. There has been no significant interval change. IMPRESSION: BENIGN There is no mammographic evidence of malignancy. A 1 year screening mammogram is recommended. The patient was notified of the results. Pina Cancino M.D. rh/alison:02/25/2018 15:17:48 Restaurant Operations Manager: Deepali RUANO)(Octavio), [facility] at [facility] letter sent: Normal/Benign Category 1/2 BI-RADS: 2 Benign Radiology Report from [facility] on 018 15:40:[address] [facility] at [address] [address] Mammography Report Signed Patient: Jeevan Jackson MR#: [id number] : 1935 Age/Sex: 82 / F ADM Date: 02/25/18 Loc: RUFINA DIS Date: = = = = = = = = = = = = = = = = = = = = = = = = = = = = = = = = = = = = = = = = = = = = = = = = = = = = = = = = = = = Date of Exam: 02/25/18 Ordering Provider: Estela Barnett APRN Type of Exam(s): MM screening erma BI w/nj Reason for Exam(s): Z12.31 Screening; N95.8 Other specified menopausal #08512.001 - MM SCREENING ERMA BI W/NJ BILATERAL DIGITAL SCREENING MAMMOGRAM 3D/2D WITH CAD: 02/25/2018 CLINICAL: Z12.31-Encounter for screening mammogram. Digital Breast Tomosynthesis was performed. Current study was also evaluated with a Computer Aided Detection (CAD) system. Comparison is made to exams dated: 02/22/2017 mammogram, 02/15/2017 mammogram, 02/15/2016 mammogram, 02/14/2013 mammogram, 02/12/2012 mammogram, and 02/10/2011 mammogram - [facility] [place] [facility]. The tissue of both breasts is heterogeneously dense, which may obscure small masses. There are benign vascular calcifications and calcifications both breasts. There also are benign densities and lymph nodes both breasts. No significant masses, calcifications, or other findings are seen in either breast. There has been no significant interval change. IMPRESSION: BENIGN There is no mammographic evidence of malignancy. A 1 year screening mammogram is recommended. The patient was notified of the results. Pina Cancino M.D. rh/penlianna:02/25/2018 15:17:48 Restaurant Operations Manager: Deepali Sotelo RT(R)(M), [facility] [place] [facility] letter sent: Normal/Benign Category 1/2 BI-RADS: 2 Benign Radiology Report from [facility] on 02/27/20 19 14:26:00 [facility] at [address] [address] Mammography Report Signed Patient: Jeevan Jackson MR#: [id number] : 1935 Age/Sex: 83 / F ADM Date: 02/26/19 Loc: WC.BC DIS Date: = = = = = = = = = = = = = = = = = = = = = = = = = = = = = = = = = = = = = = = = = = = = = = = = = = = = = = = = = = = Date of Exam: 02/26/19 Ordering Provider: Mitch Georges MD Type of Exam(s): MM screening erma BI w/nj Reason for Exam(s): screening mammo #[id number] - MM SCREENING ERMA BI W/NJ BILATERAL DIGITAL SCREENING MAMMOGRAM 3D/2D WITH CAD: 02/26/2019 CLINICAL: Z12.31-Encounter for screening mammogram. Digital Breast Tomosynthesis was performed. Current study was also evaluated with a Computer Aided Detection (CAD) system. Comparison is made to exams dated: 02/25/2018 mammogram, 02/15/2017 mammogram, 02/15/2016 mammogram, 02/14/2013 mammogram, and 02/12/2012 mammogram - [facility] [place] [facility]. The tissue of both breasts is heterogeneously dense, which may obscure small masses. There are benign vascular calcifications and calcifications both breasts. There also are benign densities and lymph nodes both breasts. No significant masses, calcifications, or other findings are seen in eith er breast. There has been no significant interval change. IMPRESSION: BENIGN There is no mammographic evidence of malignancy. A 1 year screening mammogram is recommended. The patient was notified of the results. Pina Cancino M.D. rh/penrad:02/26/2019 14:15:33 Restaurant Operations Manager: Eveline RUANO)(Octavio), [facility] [place] [facility] letter sent: Normal/Benign Category 1/2 BI-RADS: 2 Benign Radiology Report from [facility] on 02/27/20 14:26:00 [facility] at [address] [address] Mammography Report Signed Patient: Jeevan Jackson MR#: [id number] : 1935 Age/Sex: 83 / F ADM Date: 02/26/19 Loc: . DIS Date: = = = = = = = = = = = = = = = = = = = = = = = = = = = = = = = = = = = = = = = = = = = = = = = = = = = = = = = = = = = Date of Exam: 02/26/19 Ordering Provider: Mitch Georges MD Type of Exam(s): MM screening erma BI w/nj Reason for Exam(s): screening mammo #[id number] - MM SCREENING ERMA BI W/NJ BILATERAL DIGITAL SCREENING MAMMOGRAM 3D/2D WITH CAD: 02/26/2019 CLINICAL: Z12.31-Encounter for screening mammogram. Digital Breast Tomosynthesis was performed. Current study was also evaluated with a Computer Aided Detection (CAD) system. Comparison is made to exams dated: 02/25/2018 mammogram, 02/15/2017 mammogram, 02/15/2016 mammogram, 02/14/2013 mammogram, and 02/12/2012 mammogram - [facility]. The tissue of both breasts is heterogeneously dense, which may obscure small masses. There are benign vascular calcifications and calcifications both breasts. There also are benign densities and lymph nodes both breasts. No significant masses, calcifications, or other findings are seen in eith er breast. There has been no significant interval change. IMPRESSION: BENIGN There is no mammographic evidence of malignancy. A 1 year screening mammogram is recommended. The patient was notified of the results. Pina Cancino M.D. rh/penrad:02/26/2019 14:15:33 Restaurant Operations Manager: Eveline DEE(Samreen)(Octavio), [facility] letter sent: Normal/Benign Category 1/2 BI-RADS: 2 Benign Radiology Report from [facility] on 06/25/20 16:33:00 [place] [address] XRay Report Signed Patient: Jeevan Jackson MR#: [id number] : 1935 Age/Sex: 83 / F ADM Date: 06/25/19 Loc: ED DIS Date: = = = = = = = = = = = = = = = = = = = = = = = = = = = = = = = = = = = = = = = = = = = = = = = = = = = = = = = = = = = Date of Exam: 06/25/19 Ordering Provider: Mere Mendoza APRN Type of Exam(s): XR hand RT min 3V Reason for Exam(s): fall pain Indication: fall pain PROCEDURE: XR hand RT min 3V: Encounter: Initial Comparison: None Findings: There is no acute fracture, dislocation or malalignment identified. Impression: No acute osseous abnormality. . Radiology Report from [facility] on 06/25/20 16:33:00 [place] [address] XRay Report Signed Patient: Jeevan Jackson MR#: [id number] : 1935 Age/Sex: 83 / F ADM Date: 06/25/19 Loc: ED DIS Date: = = = = = = = = = = = = = = = = = = = = = = = = = = = = = = = = = = = = = = = = = = = = = = = = = = = = = = = = = = = Date of Exam: 06/25/19 Ordering Provider: Mere Mendoza APRN Type of Exam(s): XR hand RT min 3V Reason for Exam(s): fall pain Indication: fall pain PROCEDURE: XR hand RT min 3V: Encounter: Initial Comparison: None Findings: There is no acute fracture, dislocation or malalignment identified. Impression: No acute osseous abnormality. . Radiology Report from [facility] on 08/24/20 09:24:00 [place] [address] CT Scan Report Signed Patient: Jeevan Jackson MR#: [id number] : 1935 Age/Sex: 83 / F ADM Date: 08/23/19 Loc: ED DIS Date: 08/24/19 = = = = = = = = = = = = = = = = = = = = = = = = = = = = = = = = = = = = = = = = = = = = = = = = = = = = = = = = = = = Date of Exam: 08/23/19 Ordering Provider: Mere Mendoza APRN Type of Exam(s): CT abdomen pelvis w con Reason for Exam(s): Bilateral upper quadrant pain Indication: Bilateral upper quadrant pain PROCEDURE: CT abdomen pelvis w con: Encounter: Initial Comparison: None Technique: Axial CT images were performed through the abdomen and pelvis after the administration of intravenous contrast. Coronal and sagittal two-dimensional reformats. Automated Exposure Control and Iterative Reconstruction dose reducing techniques were utilized. Contrast: Omnipaque 300 96 mL Findings: Mild senescent changes in the lung bases. Moderate hiatal hernia. The liver is grossly normal. Multiple gallstones within the gallbladder. The spleen there is unremarkable. Prominence of the main pancreatic duct throughout its course with a stone seen near the junction with the duodenum measuring 5 mm in size on coronal image #26. No obvious pancreatic mass. Questionable trace inflammatory stranding near the pancreatic tail. The kidneys are normal. Scattered arterial atherosclerotic plaque. The appendix is gas-filled and normal. No bowel obs truction. Bladder is normal. Uterus and ovaries are normal. Scattered colonic diverticulosis without acute diverticulitis. Bone windows show no acute findings. Impression: 1. Dilatation of the main pancreatic duct could be acute or chronic with a 5 mm stone near the junction with the duodenum. Questionable trace inflammatory stranding near the pancreatic tail could represent acute pancreatitis in the appropriate clinical setting. ERCP may be helpful for further evaluation. 2. Cholelithiasis. There is a preliminary report by [employer]. . Radiology Report from [facility] on 08/24/20 09:24:00 [place] [address] CT Scan Report Signed Patient: Jeevan Jackson MR#: [id number] : 1935 Age/Sex: 83 / F ADM Date: 08/23/19 Loc: ED DIS Date: 08/24/19 = = = = = = = = = = = = = = = = = = = = = = = = = = = = = = = = = = = = = = = = = = = = = = = = = = = = = = = = = = = Date of Exam: 08/23/19 Ordering Provider: Mere Mendoza APRN Type of Exam(s): CT abdomen pelvis w con Reason for Exam(s): Bilateral upper quadrant pain Indication: Bilateral upper quadrant pain PROCEDURE: CT abdomen pelvis w con: Encounter: Initial Comparison: None Technique: Axial CT images were performed through the abdomen and pelvis after the administration of intravenous contrast. Coronal and sagittal two-dimensional reformats. Automated Exposure Control and Iterative Reconstruction dose reducing techniques were utilized. Contrast: Omnipaque 300 96 mL Findings: Mild senescent changes in the lung bases. Moderate hiatal hernia. The liver is grossly normal. Multiple gallstones within the gallbladder. The spleen there is unremarkable. Prominence of the main pancreatic duct throughout its course with a stone seen near the junction with the duodenum measuring 5 mm in size on coronal image #26. No obvious pancreatic mass. Questionable trace inflammatory stranding near the pancreatic tail. The kidneys are normal. Scattered arterial atherosclerotic plaque. The appendix is gas-filled and normal. No bowel obs truction. Bladder is normal. Uterus and ovaries are normal. Scattered colonic diverticulosis without acute diverticulitis. Bone windows show no acute findings. Impression: 1. Dilatation of the main pancreatic duct could be acute or chronic with a 5 mm stone near the junction with the duodenum. Questionable trace inflammatory stranding near the pancreatic tail could represent acute pancreatitis in the appropriate clinical setting. ERCP may be helpful for further evaluation. 2. Cholelithiasis. There is a preliminary report by [employer]. . Radiology Report from [facility] on 2018 07:47:00 PATIENT NAME: JEEVAN JACKSON UNIT NO: [id number] EXAMS: CPT CODE: [id number] [place] [id number] REASON FOR EXAM: pancreatitis/stones TIME OF EXAM: 2019 6:42 AM COMPARISON: None available TECHNIQUE: High resolution grayscale and color-flow ultrasound of the liver and gallbladder was performed. FINDINGS: The liver echogenicity is within normal limits. There is no focal lesion. No intrahepatic biliary dilatation is present. The common bile duct is not dilated and measures 4 mm. Multiple, small, mobile gallstones are identified. There is no evidence of gallbladder wall thickening or pericholecystic fluid. The sonographic Pichardo's sign is negative. Approximately 3 individual calculi are identified within the distal pancreatic duct possibly near the level of the ampulla. The main pancreatic duct measures 7 mm in diameter (image 36). The proximal body and tail of the pancreas are not well visualized due to overlying bowel gas. Included portions of the aorta and IVC are within normal limits in size. Please note that these vessels are not visible along their entire course. Portal vein is patent with hepatopedal flow. The right kidney measures approximately 11.8 cm in length and demonstrates mild pelviectasis with the maximum right renal pelvis AP diameter measuring approximately 11 mm. There is no ascites in the right upper quadrant. IMPRESSION: 1. Multiple nonobstructing stones within the distal main pancreatic duct at or near the level of the ampulla and resulting in main pancreatic ductal obstruction. Further evaluation with MRCP and/or ERCP is recommended. [facility] NAME: JEEVAN JACKSON [address] HP: [phone] AGE: 84 S:F [place], [place] [address] : 1935 LOC: W.97319 1 PHYS: Saurav Tyler MD PHONE #: [phone] EXAM DATE: 2019 STATUS: ADM IN FAX #: [phone] A#: [id number] U#: [id number] PAGE 1 Signed Report (CONTINUED) PATIENT NAME: JEEVAN JACKSON UNIT NO: [id number] EXAMS: CPT CODE: [id number] [place] [address] <Continued> 2. Cholelithiasis without sonographic evidence of acute cholecystitis. 3. No focal liver lesion. No biliary dilatation. 4. Mild right hydronephrosis. I have personally reviewed these images and corrected the resident physician's interpretation if necessary. at 0741 RESIDENT: DOMINGUEZ HARTMANN DO Reported and signed by: CARMITA VO MD CC: TECHNOLOGIST: SALIMA ORTIZ TRANSCRIBED DATE/Time: 2019 0741 BY: PANCHO EXAM COMPLETE DATE/TIME: [id number] 0642 D/TM:2019 (0747) [facility] NAME: JEEVAN JACKSON [address] HP: [phone] AGE: 84 S:F [place] [address] : 1935 LOC: W.54166 1 PHYS: Saurav Tyler MD PHONE #: [phone] EXAM DATE: 2019 STATUS: ADM IN FAX #: [phone] A#: [id number] U#: [id number] PAGE 2 Signed Report *Final Page* Radiology Report from [facility] on 2018 07:47:00 PATIENT NAME: JEEVAN JACKSON UNIT NO: [id number] EXAMS: CPT CODE: [id number] [place] [address] REASON FOR EXAM: pancreatitis/stones TIME OF EXAM: 2019 6:42 AM COMPARISON: None available TECHNIQUE: High resolution grayscale and color-flow ultrasound of the liver and gallbladder was performed. FINDINGS: The liver echogenicity is within normal limits. There is no focal lesion. No intrahepatic biliary dilatation is present. The common bile duct is not dilated and measures 4 mm. Multiple, small, mobile gallstones are identified. There is no evidence of gallbladder wall thickening or pericholecystic fluid. The sonographic Pichardo's sign is negative. Approximately 3 individual calculi are identified within the distal pancreatic duct possibly near the level of the ampulla. The main pancreatic duct measures 7 mm in diameter (image 36). The proximal body and tail of the pancreas are not well visualized due to overlying bowel gas. Included portions of the aorta and IVC are within normal limits in size. Please note that these vessels are not visible along their entire course. Portal vein is patent with hepatopedal flow. The right kidney measures approximately 11.8 cm in length and demonstrates mild pelviectasis with the maximum right renal pelvis AP diameter measuring approximately 11 mm. There is no ascites in the right upper quadrant. IMPRESSION: 1. Multiple nonobstructing stones within the distal main pancreatic duct at or near the level of the ampulla and resulting in main pancreatic ductal obstruction. Further evaluation with MRCP and/or ERCP is recommended. [facility] NAME: JEEVAN JACKSON [address] HP: [phone] AGE: 84 S:F [place] [address] : 1935 LOC: W.85384 1 PHYS: Saurav Tyler MD PHONE #: [phone] EXAM DATE: 2019 STATUS: ADM IN FAX #: [phone] A#: [id number] U#: [id number] PAGE 1 Signed Report (CONTINUED) PATIENT NAME: JEEVAN JACKSON UNIT NO: [id number] EXAMS: CPT CODE: [id number] [place] [address] <Continued> 2. Cholelithiasis without sonographic evidence of acute cholecystitis. 3. No focal liver lesion. No biliary dilatation. 4. Mild right hydronephrosis. I have personally reviewed these images and corrected the resident physician's interpretation if necessary. at 0741 RESIDENT: DOMINGUEZ HARTMANN DO Reported and signed by: CARMITA VO MD CC: TECHNOLOGIST: SALIMA ORTIZ TRANSCRIBED DATE/Time: 2019 0741 BY: PDOBNA EXAM COMPLETE DATE/TIME: [id number] 0642 D/TM:2019 (0747) [facility] NAME: JEEVAN JACKSON [address] HP: [phone] AGE: 84 [place] [address] : 1935 LOC: W.00005 1 PHYS: Saurav Tyler MD PHONE #: [phone] EXAM DATE: 2019 STATUS: ADM IN FAX #: [phone] A#: [id number] U#: [id number] PAGE 2 Signed Report *Final Page* Radiology Report from [facility] on 2018 17:25:00 PATIENT NAME: JEEVAN JACKSON UNIT NO: [id number] EXAMS: CPT CODE: [id number] MRCP ABD W/O CONTRAST 76405 TIME OF STUDY: 2019 4:56 PM REASON FOR EXAM: pancreatitis, pancreatic stones COMPARISON: Outside facility CT abdomen/pelvis on 08/23/2019. Liver gallbladder sonogram on 2019. TECHNIQUE: Multiplanar multisequence noncontrast enhanced MRI of the abdomen was obtained. Additionally, MRCP sequences were obtained utilizing the single shot radial and respiratory triggered 3D sequences. Both the source images and the MIP reformats were reviewed. FINDINGS: MRI abdomen: The liver is normal in size and signal. A 10 mm T2 hyperintense T1 hypointense focus is seen in segment 2 of the liver (image 20, series 14) and likely represents a hemangioma. The In and Opposed phase images demonstrate no evidence of signal drop out to suggest fatty infiltration. There is no intrahepatic biliary dilatation. Normal flow-void of the portal vein is seen at the michael hepatis. The spleen is not enlarged. No focal lesions are seen. The pancreas demonstrates normal intrinsic T1 bright signal. No focal lesions are identified. The pancreatic duct is dilated. There is no retroperitoneal inflammation or fluid collection seen. The kidneys and the adrenal glands are unremarkable. There is no hydronephrosis on either side. No retroperitoneal adenopathy on masses are seen. There is no bowel obstruction. There is no ascites in the upper abdomen. Included portion of the lung bases demonstrate normal heart size. No pleural or pericardial effusions are seen. MRCP: There is no intrahepatic biliary dilatation. The common duct at the level of the michael hepatis measures approximately 4 mm. No intraluminal filling defects are seen. Multiple small stones are present in the gallbladder lumen. The pancreatic duct is dilated measuring up to 6 mm distally (image 37, series 12). There is a filling defect in the distal pancreatic [facility] NAME: JEEVAN JACKSON [address] HP: [phone] AGE: 84 S:F [place] [address] : 1935 LOC: W.12313 1 PHYS: Lanette De La Garza MD PHONE #: [phone] EXAM DATE: 2019 STATUS: ADM IN FAX #: [phone] A#: [id number] U#: [id number] PAGE 1 Signed Report (CONTINUED) PATIENT NAME: JEEVAN JACKSON UNIT NO: [id number] EXAMS: CPT CODE: [id number] MRCP ABD W/O CONTRAST 12980 <Continued> duct likely corresponding to the calcified stone seen on the prior exam. IMPRESSION: 1. Dilated pancreatic duct with a focal filling defect distally likely corresponding to the stone seen on the prior exams. No evidence of pancreatitis and no pancreatic mass or fluid collection. 2. Cholelithiasis without evidence of acute cholecystitis. No biliary dilatation. I have personally reviewed these images and approved or corrected the resident physician's interpretation. at 1720 RESIDENT: DILMA NARAYAN MD Reported and signed by: MARY CARMEN MARIE MD CC: TECHNOLOGIST: ZOEY FERREAR TRANSCRIBED DATE/Time: 2019 1720 BY: SHARON EXAM COMPLETE DATE/TIME: [id number] D/TM:2019 (3265) [facility] NAME: JEEVAN JACKSON [address] HP: [phone] AGE: 84 S:F [place] [address] : 1935 LOC: W.41812 1 PHYS: Lanette De La Garza MD PHONE #: [phone] EXAM DATE: 2019 STATUS: ADM IN FAX #: [phone] A#: [id number] U#: [id number] PAGE 2 Signed Report *Final Page* Radiology Report from [facility] on 2018 17:25:00 PATIENT NAME: JEEVAN JACKSON UNIT NO: [id number] EXAMS: CPT CODE: [id number] MRCP ABD W/O CONTRAST 39929 TIME OF STUDY: 2019 4:56 PM REASON FOR EXAM: pancreatitis, pancreatic stones COMPARISON: Outside facility CT abdomen/pelvis on 08/23/2019. Liver gallbladder sonogram on 2019. TECHNIQUE: Multiplanar multisequence noncontrast enhanced MRI of the abdomen was obtained. Additionally, MRCP sequences were obtained utilizing the single shot radial and respiratory triggered 3D sequences. Both the source images and the MIP reformats were reviewed. FINDINGS: MRI abdomen: The liver is normal in size and signal. A 10 mm T2 hyperintense T1 hypointense focus is seen in segment 2 of the liver (image 20, series 14) and likely represents a hemangioma. The In and Opposed phase images demonstrate no evidence of signal drop out to suggest fatty infiltration. There is no intrahepatic biliary dilatation. Normal flow-void of the portal vein is seen at the michael hepatis. The spleen is not enlarged. No focal lesions are seen. The pancreas demonstrates normal intrinsic T1 bright signal. No focal lesions are identified. The pancreatic duct is dilated. There is no retroperitoneal inflammation or fluid collection seen. The kidneys and the adrenal glands are unremarkable. There is no hydronephrosis on either side. No retroperitoneal adenopathy on masses are seen. There is no bowel obstruction. There is no ascites in the upper abdomen. Included portion of the lung bases demonstrate normal heart size. No pleural or pericardial effusions are seen. MRCP: There is no intrahepatic biliary dilatation. The common duct at the level of the michael hepatis measures approximately 4 mm. No intraluminal filling defects are seen. Multiple small stones are present in the gallbladder lumen. The pancreatic duct is dilated measuring up to 6 mm distally (image 37, series 12). There is a filling defect in the distal pancreatic [facility] NAME: JEEVAN JACKSON [address] HP: [phone] AGE: 84 S:F [place] [address] : 1935 LOC: W.78112 1 PHYS: Lanette De La Garza MD PHONE #: [phone] EXAM DATE: 2019 STATUS: ADM IN FAX #: [phone] A#: [id number] U#: [id number] PAGE 1 Signed Report (CONTINUED) PATIENT NAME: JEEVAN JACKSON UNIT NO: [id number] EXAMS: CPT CODE: [id number] MRCP ABD W/O CONTRAST 67664 <Continued> duct likely corresponding to the calcified stone seen on the prior exam. IMPRESSION: 1. Dilated pancreatic duct with a focal filling defect distally likely corresponding to the stone seen on the prior exams. No evidence of pancreatitis and no pancreatic mass or fluid collection. 2. Cholelithiasis without evidence of acute cholecystitis. No biliary dilatation. I have personally reviewed these images and approved or corrected the resident physician's interpretation. at 1720 RESIDENT: DILMA NARAYAN MD Reported and signed by: MARY CARMEN MARIE MD CC: TECHNOLOGIST: ZOEY FERRERA TRANSCRIBED DATE/Time: 2019 1720 BY: PMAYLIS EXAM COMPLETE DATE/TIME: [id number] D/TM:2019 (1725) [facility] NAME: JEEVAN JACKSON [address] HP: [phone] AGE: 84 S:F [place] [address] : 1935 LOC: W.63846 1 PHYS: Lanette De La Garza MD PHONE #: [phone] EXAM DATE: 2019 STATUS: ADM IN FAX #: [phone] A#: [id number] U#: [id number] PAGE 2 Signed Report *Final Page* Encounters ACCT No. Visit Date/Time Discharge Status Pt. Type Provider Facility Loc./Unit Complaint [id number] 09/01/2019 15:16:00 09/01/2019 23:59: 59 [facility] Outpatient MITCH GEORGES [facility] [id number] 07/29/2019 16:02:00 07/29/2019 23:59: 59 [facility] Outpatient [facility] [id number] 02/10/2019 12:47:00 02/10/2019 23:59: 59 [facility] Outpatient MITCH GEORGES [facility] [id number] 02/07/2019 09:39:00 02/07/2019 23:59: 59 [facility] Outpatient ESTELA BARNETT [facility] [id number] 01/19/2020 09:54:00 Document Registration [id number] 11/03/2019 07:21:00 Document Registration [id number] 09/30/2019 19:51:00 Document Registration [id number] 04/22/2019 08:43:00 Document Registration [id number] 04/19/2019 20:45:00 Document Registration [id number] 02/11/2019 06:40:00 Document Registration [id number] 11/08/2018 03:47:00 Document Registration [id number] 10/01/2018 06:42:00 Document Registration [id number] 08/23/2019 20:48:00 019 01:08:00 DIS Emergency TIKI GIBSON, PINA [facility] abdm pain [id number] 06/25/2019 16:05:00 019 17:35:00 DIS Emergency FLORESITA GIBSON, OSCAR Naik [facility] r hand inj [id number] 02/26/2019 13:12:00 019 13:13:00 DIS Outpatient MITCH GEORGES MD. screening mammo [id number] 02/25/2018 10:52:00 018 10:53:00 DIS Outpatient ESTELA BARNETT [facility] Z12.31 Screening; N95.8 Other specified menopausal [id number] 02/22/2017 09:21:00 017 09:22:00 [facility] [id number] 02/15/2017 07:36:00 017 23:59:59 [facility] Outpatient [facility]. [id number] 02/15/2016 09:57:00 016 23:59:59 CLS Outpatient MITCH GEORGES MD [facility] [id number] 02/04/2020 14:45:00 Document Registration [id number] 12/16/2015 10:36:43 12/16/2015 10:3 6:43 DIS Outpatient [id number] 2019 03:36:00 16:33:00 DIS Inpatient Jacquelyn GIBSON, [facility] W.10TS [id number] 12/16/2015 10:36:43 12/16/2015 10:3 6:43 DIS Outpatient [id number] 09/01/2019 15:16:00 09/01/2019 23:59: 59 CLS Outpatient MITCH GEORGES TRISH [facility] [id number] 07/29/2019 16:02:00 07/29/2019 23:59: 59 CLS Outpatient TRISH [facility] [id number] 02/10/2019 12:47:00 02/10/2019 23:59: 59 CLS Outpatient MITCH GEORGES [facility] [id number] 02/07/2019 09:39:00 02/07/2019 23:59: 59 C[facility] Outpatient ESTELA BARNETT [facility] [id number] 01/19/2020 09:54:00 Document Registration [id number] 11/03/2019 07:21:00 Document Registration [id number] 09/30/2019 19:51:00 Document Registration [id number] 04/22/2019 08:43:00 Document Registration [id number] 04/19/2019 20:45:00 Document Registration [id number] 02/11/2019 06:40:00 Document Registration [id number] 11/08/2018 03:47:00 Document Registration [id number] 10/01/2018 06:42:00 Document Registration [id number] 2019 03:36:00 16:33:00 DIS Inpatient Jacquelyn GISBON, [facility] W.10 [id number] 08/23/2019 20:48:00 01:08:00 DIS Emergency TIKI GIBSON, [facility] abdm pain [id number] 06/25/2019 16:05:00 17:35:00 DIS [facility] [id number] 02/26/2019 13:12:00 13:13:00 DIS Outpatient MITCH GEORGES MD. screening mammo [id number] 02/25/2018 10:52:00 018 10:53:00 DIS Outpatient [facility] Z12.31 Screening; N95.8 Other specified menopausal [id number] 02/22/2017 09:21:00 017 09:22:00 DIS Outpatient MITCH GEORGES MD. [id number] 02/15/2017 07:36:00 017 23:59:59 CLS Outpatient [facility]. [id number] 02/15/2016 09:57:00 016 23:59:59 CLS Outpatient MITCH GEORGES MD [facility]. [id number] 02/04/2020 14:45:00 Document Registration
--- OUTSIDE RECORDS SUMMARY | 2020-02-18 22:05 | XMS REPORT | Continuity of Care Document ---
Author Author [facility] Address [address] [place] [address] Care Team Providers Care Manager Style Name Role Phone Mitch Yin PCP Estela Barnett Attphys Allergies, Adverse Reactions, Alerts Allergen Type Severity Reaction Last Updated Verified Status lovastatin Allergy Unknown December 08, 2015 N Acti ve Medications Active Medications Medication Dose Units Sig Qty Days Start Date Status Aspirin [Aspir 81] 81 MG Daily 0 October 24 011 Active Colesevelam Hcl [Welchol] 3 TAB Twice a Day 0 Ja nuary 2010 Active Calcium Carbonate (Calcium) 600 MG 2 DAILY 0 2010 Active Ergocalciferol (Vitamin D2) [Vitamin D] 800 UNIT 2 DAILY 0 October 24, 2010 Active Ezetimibe [Zetia] 10 MG Daily 0 October 24 11 Active Fenofibrate [Tricor] 145 MG Daily 0 October 24, 2010 Active Folic Acid 400 MG Daily 0 October 24, 2010 Acti ve Rosuvastatin Calcium [Crestor] 20 MG Daily 0 J anuary 2010 Active VITAMIN B12 100MCG. DAILY 0 October 24 11 Active Chlorthalidone [Hygroton] 25 MG Daily 0 2012 Active Losartan Potassium 100 MG Daily 0 November 16, 2012 Active Alendronate Sodium 70 MG Weekly 0 November 16, 2012 Active Clopidogrel Bisulfate [Clopidogrel] 1 TAB Daily 0 June 06, 2014 Active Lubec-3 Fatty Acids [Fish Oil] 1000 MG Daily 0 2013 Active Lutein 1 CAP Daily 0 June 06, 2014 Activ e Metformin Hcl 500 MG Twice Daily with Meals 0 Sep tem2013 Active Potassium Gluconate 595 MG Daily 0 May Active Diphenhydramine Hcl 2 TAB Every 6 Hours 0 3 naif 2013 Active Pyridoxine Hcl (Vitamin B6) [Vitamin B-6] Daily 0 June 07, 2014 Active Levothyroxine Sodium 1 TAB Daily December 07 016 Active Carvedilol [Coreg] 1 TAB Twice Daily with Meals 0 December 08, 2015 Active Discontinued Medications Medication Dose Units Sig Qty Days Start Date Discontinu ed Date Status Bisoprolol/Hctz 5/6.25 [Ziac] 1 TAB 2 DAILY 0 [facility] 2010November 06, 2010 Discontinued Fosinopril Sodium 20 MG Daily 0 October 24November 06, 2010 Discontinued Irbesartan [Avapro] 300 MG Daily October 24, 2010 November 16, 2012 Discontinued Levothyroxine Sodium [Levoxyl] 200 MCG Daily 0 J anuary 2010December 08, 2015 Discontinued Hydrochlorothiazide 1 TAB Daily 0 November 06, 2010 November 26, 2010 Discontinued Problem List No problem information available. Procedures Procedure Date Status MM screening erma BI w/isaak February 25, 2018 completed XR DEXA axial skeleton February 25, 2018 completed Relevant Diagnostic Tests and/or Laboratory Data No known relevant diagnostic tests, laboratory data, and/or discharge summary. Chief Complaint and Reason for Visit Encounter Admit Date Chief Complaint Reason for Visit Departed Clinical February 25, 2018 10:52am Z12.31 Screening; N 95.8 Other specified menopausal Hospital Discharge Instructions No known hospital discharge instructions. Hospital Discharge Medications Medication Dose Units Route Sig Qty Days Order Date Status In structions Aspirin 81 MG Daily 0 October 24, 2010 Active Bisoprolol/Hctz 5/6.25 1 TAB 2 DAILY 0 October 24, 2010 Discontinued Colesevelam Hcl 3 TAB Twice a Day September Active Calcium Carbonate (Calcium) 600 MG 2 DAILY 0 breda 2010 Active Ergocalciferol (Vitamin D2) 800 UNIT 2 DAILY 0 2010 Active Ezetimibe 10 MG Daily October 24, 2010 Acti ve Fenofibrate 145 MG Daily October 24, 2010 Ac tive Folic Acid 400 MG Daily October 24, 2010 Act dayanara Fosinopril Sodium 20 MG Daily October 24 011 Discontinued Irbesartan 300 MG Daily October 24, 2010 Dis continued Levothyroxine Sodium 200 MCG Daily September Discontinued Rosuvastatin Calcium 20 MG Daily September Active VITAMIN B12 100MCG. DAILY October 24, 2010 Active Hydrochlorothiazide 1 TAB Daily 0 October Discontinued Chlorthalidone 25 MG Daily 0 November 16 3 Active Losartan Potassium 100 MG Daily 0 November 16, 2012 Active Alendronate Sodium 70 MG Weekly 0 November 16, 2012 Active Clopidogrel Bisulfate 1 TAB Daily 0 June 06, 2014 Active Lubec-3 Fatty Acids 1000 MG Daily 0 May 252013 Active Lutein 1 CAP Daily 0 June 06, 2014 Activ e Metformin Hcl 500 MG Twice Daily with Meals 0 S epmb2013 Active Potassium Gluconate 595 MG Daily 0 May 252013 Active Diphenhydramine Hcl 2 TAB Every 6 Hours 0 3 Sept emb2013 Active Pyridoxine Hcl (Vitamin B6) Daily 0 Sep 2013 Active Levothyroxine Sodium 1 TAB Daily December 08, 2015 Active Carvedilol 1 TAB Twice Daily with Meals 0 2015 Active Encounters Encounter Facility Location Admit/Visit Date Discharge/Departure Date Attending Provider Departed Clinical [facility] February 25, 2018 1 0:52am February 25, 2018 10:53am Estela Barnett Functional Status No known functional status. Immunizations No known immunizations. Payers Payer Name Policy Type Covered Constitution Party Covered Constitution Party Id Relationship Sub scriber Subscriber Id Medicare Medicare Part A [id number] Self/Same As Patient [id number] Self Pay Personal Payment ([place] - No Insurance) [facility] [employer] [id number] Self/Same As P atient [id number] Plan of Care No Known Plan of Care Information Social History No known social history. Vital Signs No known vital signs results.
--- OUTSIDE RECORDS SUMMARY | 2020-02-18 22:05 | XMS REPORT | Continuity of Care Document ---
Author Author [facility] Organization [facility] Address Unknown Phone Unavailable Support Name Relationship Address Phone EDWARD GEORGES MD Caregiver [address] [place] [phone] OSCAR CANAS MD Caregiver [address] [place] [address] [place] [address] KATHLEEN SIEGEL Next Of Kin [address] [place] [address] C Insurance Providers Payer Name Policy Number Subscriber Name Relationship [facility] [id number] Kaitlyn Siegel 17 Self Problems Medical Problems Problem Onset Date Status Urticaria Unknown Active Urticaria Unknown Active Medications Medication Dose Route Sig Days/Qty Instructions Order Date Disc ontinued Date Status Bisoprol/Hydrochlorothiazide 1 Tab PO 2 DAILY 11/06/10 Discontinued Levothyroxine Sodium 200 Mcg PO DAILY 10/24/10 Active Ezetimibe 10 Mg PO DAILY 10/24/10 Activ e Colesevelam Hcl 3 Tab PO TWICE A DAY 10/24/10 Active [Vitamin B12] 100MCG. DAILY 10/24/10 Active Fenofibrate Nanocrystallized 145 Mg PO DAILY Active Fosinopril Sodium 20 Mg PO DAILY 10/24/1011/06 Discontinued Folic Acid 400 Mg PO DAILY 10/24/10 Acti ve Rosuvastatin Calcium 20 Mg PO DAILY 10/24/10 Active Irbesartan 300 Mg PO DAILY 10/24/10 11/16/12 Dis continued Aspirin 81 Mg PO DAILY 10/24/10 Active Calcium Carbonate 600 Mg PO 2 DAILY 10/24/10 Active Ergocalciferol 800 Unit PO 2 DAILY 10/24/10 Active Hydrochlorothiazide 1 Tab PO DAILY 11/06/1002/01 Discontinued Nebivolol Hcl 20 Tab PO DAILY 11/06/10 A ctive Chlorthalidone 25 Mg PO DAILY 11/16/12 Active Losartan Potassium 100 Mg PO DAILY 11/16/12 Active Alendronate Sodium 70 Mg PO WEEKLY 11/16/12 Active Clopidogrel Bisulfate 1 Tab PO DAILY 06/06/14 Active Basalt-3 Fatty Acids 1,000 Mg DAILY 06/06/14 Active Potassium Gluconate 595 Mg DAILY [...] GIVE WITH BREAKFAST 3 Days 06/06/14 Active Pyridoxine HCl DAILY 06/07/14 Active Hydroxyzine HCl 1 Tab PO FOUR TIMES DAILY 5 Days 4 Active Methylprednisolone 0 PO DAILY 1 Qty Taper accor ding to directions on box 06/07/14 Active Social History Social History Problem Response Recorded Date/Frantz e Smoking Status Unknown if ever smoked 06/07/2014 6:59pm Hx Substance Use No 06/07/2014 6:59pm Hx Alcohol Use No 06/07/2014 6:59pm Query Response Start Date Stop Date Smoking Status Unknown if ever smoked Hospital Discharge Instructions No hospital discharge instructions. Plan of Care No plan of care. Functional Status Query Response Date Recorded Physical Hygiene Self June 07, 2014 6:59pm Disabilities None June 07, 2014 6:59pm Devices Used Glasses June 07, 2014 6:59pm Dressing Self June 07, 2014 6:59pm Ambulation Self June 07, 2014 6:59pm Diet Self June 07, 2014 6:59pm Mental Status Alert June 07, 2014 7:17pm Disabilities None June 07, 2014 6:59pm Devices Used Glasses June 07, 2014 6:59pm Physical Hygiene Self June 07, 2014 6:59pm Dressing Self June 07, 2014 6:59pm Ambulation Self June 07, 2014 6:59pm Diet Self June 07, 2014 6:59pm Allergies, Adverse Reactions, Alerts Allergen Type Severity Reaction Status Last Updated No Known Drug Allergies Allergy Unknown Active 0 06/07/14 Immunizations Name Given Type Hx Influenza Vaccination Y 2009 Historical Hx Pneumococcal Vaccination Y 2008 Historical Hx Influenza Vaccination Y 2009 Historical Vital Signs Acute Vital Signs Vital Response Date/Time Temperature (Fahrenheit) 97.8 deg F (96.8 - 99.1) Temperature (Calculated Celsius) 36.24892 degrees C (36.0 - 37.3) Pulse Rate (adult) 71 bpm (60 - 100) Respiratory Rate 18 breaths/min (10 - 20) O2 Sat by Pulse Oximetry 94 % (90 - 100) Blood Pressure 123/60 mm Hg Height 5 ft 3 in Weight 176 lb Body Mass Index 31.0 kg/m^2 Results Test Source Date Result Interp. [...] Has specimen been collected/obtained? Y Urine Specific Nelson November 06, 2010 5:53pm 1.015 - Has [...] history of procedures. Encounters Encounter Location Date/Time Departed Emergency Room [facility] 06/07/14 5:59p m Departed Emergency Room [facility] 06/06/14 12:51 am Recent Diagnosis
[2020-02-18 22:29] VITALS: BP 131/81
== END 2020-02-18 22:41 | disposition home or self-care (01) ==
LOC: ER 19:22
DX: F03.90 Unspecified dementia, unspecified severity, without behavioral disturbance, psychotic disturbance, mood disturbance, and anxiety (principal)
CPT/HCPCS: 36415; 70450; 71045; 72125; 80053; 85025